=== PATIENT | female | born 1985 | race Caucasian/White ===

== ENCOUNTER → 2020-08-07 | Outpatient (CLI) | payer BC, OTHER ==
[2020-08-07 16:02] LABS: Basophils # (A) 0.05 X 10*3/uL (0.00-0.10); Basophils % (A) 0.5 %; Eosinophils # (A) 0.28 X 10*3/uL (0.04-0.35); Eosinophils % (A) 2.7 %; HGB 13.1 g/dL (12.0-15.0); Lymphocytes # (A) 2.79 X 10*3/uL (0.90-5.00); Lymphocytes % (A) 26.4 %; MCH 30.5 pg (27.0-32.0); MCV 95.3 fL (80.0-97.0); Mean Platelet Volume 10.2 fL (9.5-12.2); Monocytes # (A) 0.67 X 10*3/uL (0.20-1.00); Monocytes % (A) 6.3 %; Neutrophils # (A) 6.73 X 10*3/uL (1.80-7.70); Neutrophils % (A) 63.7 %; Platelet Count 284 X 10*3/uL (140-440); RDW 12.8 % (11.5-14.5); WBC 10.56 X 10*3/uL (4.50-10.00)
[2020-08-07 19:19] LABS: Hemoglobin A1C 6.6 % (4.0-6.0)
[2020-08-07 19:55] LABS: African American GFR (CKD) 131.9 (60.0-200.0); Albumin 4.5 g/dL (3.80-4.90); Albumin/Globulin Ratio 2.05 (1.60-3.17); Anion Gap 6.4 mmol/L (4.00-12.00); BUN/Creat Ratio 17.14 Ratio (12.00-20.00); Calcium 8.7 mg/dL (8.7-10.3); Carbon Dioxide 27.6 mmol/L (21.6-31.8); Chol/HDL Ratio 5.16; Globulin 2.2 g/dL (1.6-3.3); LDL Cholesterol,Calculated 99.8 mg/dL (0.0-131.0); Non-African American GFR(CKD) 113.8 (60.0-200.0); Potassium 4.5 mmol/L (3.5-5.5); Total Bilirubin 0.5 mg/dL (0.3-1.2); Total Protein 6.7 g/dL (6.2-8.2); VLDL Calculation 54.2 mg/dL (5.00-40.00)
== END | disposition home or self-care (01) ==
LOC: LABWHC1 08:36
PROVIDERS: ATTEND Nurse Practitioner Family
DX: Z13.220 Encounter for screening for lipoid disorders (principal); E11.9 Type 2 diabetes mellitus without complications
CPT/HCPCS: 36415; 80053; 80061; 83036; 85025

== ENCOUNTER → 2022-11-03 | Outpatient (CLI) | payer BC, OTHER ==
[2022-11-04 11:31] LABS: Zinc, Serum 77 ug/dL (60-130)
[2022-11-05 04:21] LABS: Vitamin A 62 ug/dL (38-106)
== END | disposition home or self-care (01) ==
LOC: LABWHC1 08:33
PROVIDERS: ATTEND Surgery Plastic and Reconstructive Surgery
DX: E66.01 Morbid (severe) obesity due to excess calories (principal); E89.1 Postprocedural hypoinsulinemia; D50.8 Other iron deficiency anemias; K91.2 Postsurgical malabsorption, not elsewhere classified; E44.0 Moderate protein-calorie malnutrition; E44.1 Mild protein-calorie malnutrition; E55.9 Vitamin D deficiency, unspecified; K74.1 Hepatic sclerosis; N19 Unspecified kidney failure; T56.894A Toxic effect of other metals, undetermined, initial encounter; K50.90 Crohn's disease, unspecified, without complications
CPT/HCPCS: 36415; 82525; 84255; 84425; 84590; 84630

== ENCOUNTER → 2022-11-05 | Outpatient (CLI) | payer BC, OTHER ==
[2022-11-05 17:17] LABS: HCT 40.7 % (37.2-46.3); HGB 13.2 d/dL (12.0-15.0); MCH 30.6 pg (27.0-32.0); MCHC 32.4 d/dL (32.0-37.0); MCV 94.4 FL (80.0-97.0); Mean Platelet Volume 10.8 FL (9.5-12.2); NRBC Per 100 WBC 0 X 10*3/uL (0.00-0.01); Platelet Count 285 X 10*3/uL (140-440); RBC 4.31 X 10*6/uL (4.10-5.20); RDW 12.7 % (11.5-14.5); WBC 10.71 X 10*3/uL (4.50-10.00)
== END | disposition home or self-care (01) ==
LOC: LABPAT 08:57
PROVIDERS: ATTEND Surgery Plastic and Reconstructive Surgery
DX: E89.1 Postprocedural hypoinsulinemia (principal); D50.8 Other iron deficiency anemias; K91.2 Postsurgical malabsorption, not elsewhere classified; E44.1 Mild protein-calorie malnutrition; E44.0 Moderate protein-calorie malnutrition; E45 Retarded development following protein-calorie malnutrition; E55.9 Vitamin D deficiency, unspecified; K74.1 Hepatic sclerosis; N19 Unspecified kidney failure; T59.894A Toxic effect of other specified gases, fumes and vapors, undetermined, initial encounter; K50.90 Crohn's disease, unspecified, without complications
CPT/HCPCS: 85027

== ENCOUNTER 2023-01-05 06:05 | Day surgery (SDC) | payer BC, OTHER ==
[~2023-01-05 06:05] MED LIST: LACTATED RINGERS 1,000 ML IV SCH; LIDOCAINE 1% (10MG/ML) FOR IV START INTRADERMA PRN
[2023-01-05] MEDS ORDERED: LIDOCAINE 1% INJ 10MG/ML (20 ML MDV) ONE (07:00)
[2023-01-05] MEDS ORDERED: PROPOFOL 10 MG/ML 20 ML VIAL IV ONE (07:00)
[2023-01-05 07:03] VITALS: TEMP 97.6
[2023-01-05 07:07] LABS: Glucose,Whole Blood 112 mg/dL (70-110)
--- NOTE | 2023-01-05 07:29 | P.GSHP ---
History of Present Illness H&P Date: 01/05/23 CHIEF COMPLAINT: GERD HISTORY OF PRESENT ILLNESS: The patient is a 37-year-old female who presents reports gastroesophageal reflux disease. Upper endoscopy was offered for further evaluation and management. PAST MEDICAL HISTORY: Please see list. PAST SURGICAL HISTORY: Please see list. MEDICATIONS: Please see list. ALLERGIES: Please see list. SOCIAL HISTORY: No illicit drug use FAMILY HISTORY: No reports of Crohn disease or ulcerative colitis. REVIEW OF ORGAN SYSTEMS: CONSTITUTIONAL: No reports of fevers or chills. GI: Denies any blood in stools or constipation. PHYSICAL EXAM: VITAL SIGNS: Stable GENERAL: Well-developed and pleasant in no acute distress. HEENT: No scleral icterus. Extraocular movements grossly intact. Moist buccal mucosa. NECK: Supple without lymphadenopathy. CHEST: Unlabored respirations. Equal bilateral excursions. CARDIOVASCULAR: Regular rate and rhythm. Distal 2+ pulses. ABDOMEN: Soft, nondistended. MUSCULOSKELETAL: No clubbing, cyanosis, or edema. ASSESSMENT: 1. Gastroesophageal reflux disease PLAN: 1. Recommend proceeding with an upper endoscopy Past Medical History Past Medical History: Diabetes Mellitus, GERD/Reflux Additional Past Medical History / Comment(s): kidney stones History of Any Multi-Drug Resistant Organisms: None Reported Past Surgical History: Adenoidectomy, Cholecystectomy, Hysterectomy, Tonsillectomy, Tubal Ligation Additional Past Surgical History / Comment(s): lithotripsy rt carpal tunnel, varicose vein rt leg, Past Anesthesia/Blood Transfusion Reactions: Postoperative Nausea & Vomiting (PONV) Smoking Status: Former smoker Medications and Allergies Home Medications Medication Instructions Recorded Confirmed Type Omeprazole 20 mg PO BID 10/29/22 01/05/23 History Venlafaxine HCl [Effexor XR] 225 mg PO DAILY 10/29/22 01/05/23 History metFORMIN HCL [metFORMIN HCL ER 500 mg PO DAILY 10/29/22 01/05/23 History Osmotic] Ergocalciferol [Vitamin D2 (1250 50,000 unit PO WEEKLY 11/06/22 01/05/23 History Mcg = 43712 Iu)] Allergies Allergy/AdvReac Type Severity Reaction Status Date / Time cephalexin [From Keflex] AdvReac Unknown Verified 01/05/23 06:53 ethinyl estradiol AdvReac Nausea & Verified 01/05/23 06:53 [From Sprintec (28)] Vomiting & Diarrhea norgestimate AdvReac Nausea & Verified 01/05/23 06:53 [From Sprintec (28)] Vomiting & Diarrhea Surgical - Exam Vital Signs Temp Resp BP Pulse Ox 97.6 F 17 131/82 97 01/05/23 06:45 01/05/23 06:45 01/05/23 06:45 01/05/23 06:45 Results - Labs Abnormal Lab Results - Last 24 Hours (Table) 01/05/23 Range/Units 06:52 POC Glucose (mg/dL) 112 H (70-110) mg/dL
--- NOTE | 2023-01-05 07:33 | P.PCN ---
Date of Procedure: 01/05/23 Description of Procedure: PREOPERATIVE DIAGNOSIS: Gastroesophageal reflux disease. Morbid obesity. POSTOPERATIVE DIAGNOSIS: Gastroesophageal reflux disease. Morbid obesity. Gastritis. OPERATION: Esophagogastroduodenoscopy with biopsies along esophagus, antrum and duodenum SURGEON: Alejandra Morrow MD ANESTHESIA: MAC. INDICATIONS: The patient is a 37-year-old female who presents with reflux disease. Benefits and risks of the procedure were described. Informed consent was obtained. DESCRIPTION: The patient was brought into the endoscopy suite and laid in the left lateral decubitus position. An Olympus gastroscope was passed along the posterior oropharynx down to the distal esophagus where the squamocolumnar junction was encountered at 42 cm from the incisors. The stomach was entered and no bile reflux was found. Additional findings are listed below. Biopsies with cold forceps were obtained of the antrum. The first through third portion of the duodenum was examined. Retroflexion of the scope confirmed Hill grade 1 lower esophageal valve. The squamocolumnar junction demonstrated LA grade A erosive esophagitis. The stomach was desufflated. The patient tolerated the procedure well. FINDINGS: Squamocolumnar junction 42 cm from the incisors. Diaphragmatic hiatus at 42 cm. Hill grade 1 lower esophageal valve. LA grade A erosive esophagitis. Biopsies obtained of the duodenum, esophagus, and antrum. Chronic gastritis with biopsies obtained. RECOMMENDATIONS: Upper endoscopy as needed. Plan - Discharge Summary Discharge Rx Participant: No New Discharge Prescriptions: Continue metFORMIN HCL [metFORMIN HCL ER Osmotic] 500 mg PO DAILY Venlafaxine HCl [Effexor XR] 225 mg PO DAILY Omeprazole 20 mg PO BID Ergocalciferol [Vitamin D2 (1250 Mcg = 91415 Iu)] 50,000 unit PO WEEKLY Discharge Medication List Omeprazole 20 mg PO BID 10/29/22 [History] Venlafaxine HCl [Effexor XR] 225 mg PO DAILY 10/29/22 [History] metFORMIN HCL [metFORMIN HCL ER Osmotic] 500 mg PO DAILY 10/29/22 [History] Ergocalciferol [Vitamin D2 (1250 Mcg = 07061 Iu)] 50,000 unit PO WEEKLY 11/06/22 [History] Follow up Appointment(s)/Ref[facility] [place] [facility] - 01/14/23 Patient Instructions/Handouts: Gastritis (DC), GERD (Gastroesophageal Reflux Disease) (DC) Discharge Disposition: HOME SELF-CARE
[2023-01-05 07:47] VITALS: RESP 16
[2023-01-05 08:02] VITALS: BP 131/82; PULSE 77
== END 2023-01-05 08:15 | disposition home or self-care (01) ==
LOC: ORWHC2ENDO 06:05
PROVIDERS: ATTEND Surgery Plastic and Reconstructive Surgery
DX: K29.50 Unspecified chronic gastritis without bleeding (principal); K21.00 Gastro-esophageal reflux disease with esophagitis, without bleeding; E66.01 Morbid (severe) obesity due to excess calories; K44.9 Diaphragmatic hernia without obstruction or gangrene; Z79.84 Long term (current) use of oral hypoglycemic drugs; Z79.899 Other long term (current) drug therapy; Z87.442 Personal history of urinary calculi; Z90.49 Acquired absence of other specified parts of digestive tract; Z90.710 Acquired absence of both cervix and uterus; Z98.51 Tubal ligation status; Z90.89 Acquired absence of other organs; Z87.891 Personal history of nicotine dependence; Z88.1 Allergy status to other antibiotic agents; Z68.41 Body mass index [BMI] 40.0-44.9, adult
CPT/HCPCS: 88305; 43239; J2001; J2704

== ENCOUNTER → 2023-01-14 | Outpatient (CLI) | payer BC, OTHER ==
[2023-01-14 14:06] VITALS: BP 155/93; PULSE 91; TEMP 98.4; BMI 41.4
--- NOTE | 2023-01-14 14:57 | P.BASOAP ---
Subjective Progress Note Date: 01/14/23 Knows she has fatty liver disease. EGD reviewed. Needs vit D. FDD plan for sleeve gastrectomy. Risk for increase GERD. 3 week protein diet. Needs new nicotine urine. Objective - Vital Signs Vital signs: Vital Signs Temp 98.4 F 01/14/23 13:57 Pulse 91 01/14/23 13:57 Resp BP 155/93 01/14/23 13:57 Pulse Ox FiO2 Intake & Output 01/13/23 01/14/23 01/14/23 18:59 06:59 18:59 Weight 140.614 kg Assessment/Plan Plan: Date: 01/14/23 Initial Weight: Initial BMI: Current Weight: 140.614 kg Current BMI: 41.4 Type of Surgery: Total Volume in Band: Previous Volume: Volume Removed: Volume Added: Band Size:
[2023-01-17 12:31] LABS: Anabasine Urine <2.0 ng/mL (<2.0)
== END ==
LOC: BARWHC3 13:36
PROVIDERS: ATTEND Surgery Plastic and Reconstructive Surgery
DX: Z53.9 Procedure and treatment not carried out, unspecified reason (principal)
CPT/HCPCS: 80323; 99211

== ENCOUNTER → 2023-04-01 | Outpatient (CLI) | payer BC, OTHER ==
[2023-04-01 15:43] VITALS: BP 155/99; PULSE 92; TEMP 97.9; BMI 39.6
--- NOTE | 2023-04-06 08:24 | P.BASOAP ---
Subjective Progress Note Date: 04/01/23 DATE OF SERVICE: 04/01/23 CHIEF COMPLAINT: Morbid obesity HISTORY OF PRESENT ILLNESS: Guerda Nolen is a 37-year-old female who comes with lifelong morbid obesity. She comes in looking into the sleeve gastrectomy. As a result of her morbid obesity, she has developed diabetes type 2, osteoarthritis bilateral hips, osteoarthritis bilateral knees. She has completed medical supervised weight loss. She has completed medical risk assessment. She is undergoing medical supervised weight loss. She is on diet. She is down 14 to 15 pounds after 1 week. At work she is lifting 180 pounds. At height of 6 feet 0.5 inches, her ideal body weight is 183 pounds. Highest weight is 309 pounds, body mass index 41.5. She comes in 296 pounds. Her body mass index is 39.6. She is 113 pounds overweight. PAST MEDICAL HISTORY: 1. Morbid obesity due to excess calories 2. Body mass index 41.5 3. Depressive disorder 4. Diabetes type 2, [id number] 5. Esophageal reflux disease 6. Kidney stone 7. Generalized anxiety disorder 8. Postop nausea or vomiting 9. Osteoarthritis bilateral knees. 10. Osteoarthritis bilateral hips PAST SURGICAL HISTORY: 1. Adenoidectomy 2. Cholecystectomy 3. Hysterectomy 4. Tonsillectomy 5. Tubal Ligation 6. Lithotripsy HOME MEDICATIONS: Home Medications Medication Instructions Recorded Confirmed Venlafaxine HCl [Effexor XR] 225 mg PO DAILY 10/29/22 04/15/23 metFORMIN HCL [metFORMIN HCL ER 500 mg PO DAILY 10/29/22 04/15/23 Osmotic] Ergocalciferol [Vitamin D2 (1250 50,000 unit PO WEEKLY 11/06/22 04/15/23 Mcg = 25503 Iu)] Previous Rx's Medication Instructions Recorded Acetaminophen Tab [Tylenol] 1,000 mg PO Q6HR PRN #30 tablet 04/07/23 Omeprazole [PriLOSEC] 40 mg PO DAILY #30 cap 04/07/23 Ondansetron Odt [Zofran Odt] 4 mg PO Q8HR PRN #9 tab 04/07/23 Simethicone 40 mg/0.6 ml Drops 40 mg PO PCHS PRN #30 ml 04/07/23 [Mylicon Drops] bisacodyL [Dulcolax] 5 mg PO DAILY PRN #10 tab 04/07/23 ALLERGIES: Allergies Allergy/AdvReac Type Severity Reaction Status Date / Time cephalexin [From Keflex] AdvReac Unknown Verified 04/10/23 10:16 ethinyl estradiol AdvReac Nausea & Verified 04/10/23 10:16 [From Sprintec (28)] Vomiting & Diarrhea norgestimate AdvReac Nausea & Verified 04/10/23 10:16 [From Sprintec (28)] Vomiting & Diarrhea SOCIAL HISTORY: Past tobacco use. FAMILY HISTORY: No family history of ulcerative colitis disease or Crohn's disease. Family history of morbid obesity. No lupus in the family. No reports of stomach or esophageal cancer. REVIEW OF ORGAN SYSTEMS: CONSTITUTIONAL: HEENT: Denies any active troubles with vision or hearing. Has troubles with swallowing. ENDOCRINE: Has diabetes. No hypothyroidism. CARDIOVASCULAR: Past reports of palpitations or heart attacks or chest pain. Has hypertensive heart disease. RESPIRATORY: Has daytime somnolence. Has asthma. Has chronic obstructive pulmonary disease. GASTROINTESTINAL: Denies any bright red blood per rectum. No diarrhea. No constipation. Has gastroesophageal reflux disease. GENITOURINARY: Has bladder urgency. No recent blood in urine MUSCULOSKELETAL: Has lower back pain and joint pain. Has osteoarthritis of the knees. History of bilateral lower extremity edema. NEURO: No headaches. No seizure disorders. Has neuropathy. PSYCH: Has depression. No suicidal ideation. RHEUMATOLOGIC: No lupus. No rheumatoid arthritis. HEMATOLOGIC: Denies any abnormal bleeding or bruising. Past history of DVTs. On blood thinners. SKIN: No rash. No skin cancer. PHYSICAL EXAM: VITAL SIGNS: Height 6 foot 0.5 inches, weight 296 pounds. BMI 39.6 Vital Signs Temp 97.9 F 04/01/23 15:34 Pulse 92 04/01/23 15:34 Resp BP 155/99 04/01/23 15:34 Pulse Ox FiO2 GENERAL: Well-developed in no acute distress. HEENT: No scleral icterus. Extraocular movements grossly intact. Hears conversational speech. No nasal drainage. NECK: Supple without lymphadenopathy. CHEST: Nonlabored respirations with equal bilateral excursions. CARDIOVASCULAR: Regular rate and regular rhythm. Distal 2+ pulses. ABDOMEN: Obese, soft, nontender, nondistended. MUSCULOSKELETAL: No clubbing, cyanosis. NEURO: No focal or lateralizing signs. Cranial nerves 2 through 12 grossly within normal limits. PSYCH: Appropriate affect. Alert and oriented to person, place and time. SKIN: Good skin turgor. Well perfused. LABS: Reviewed. WBC elevated, leukocytosis Urine: Urine cotinine and nicotine elevated. EKG: Anterior lateral and possible inferior infarct. EGD FINDINGS: Squamocolumnar junction 42 cm from the incisors. Diaphragmatic hiatus at 42 cm. Hill grade 1 lower esophageal valve. LA grade A erosive esophagitis. Biopsies obtained of the duodenum, esophagus, and antrum. Chronic gastritis with biopsies obtained. Final Pathologic Diagnosis A. DUODENUM, BIOPSY: Benign small bowel mucosa with intact villous architecture, negative for histopathologic abnormality. B. GASTRIC ANTRUM, BIOPSY: Mild chronic gastritis. Helicobacter pylori organisms are not identified on routine H+E sections. C. ESOPHAGUS, BIOPSY: Chronic esophagitis with rare intramucosal eosinophils consistent with reflux esophagitis. ASSESSMENT: 1. Morbid obesity due to excess calories 2. Body mass index 41.5 now 39.6 3. Depressive disorder 4. Diabetes type 2, [id number] 5. Esophageal reflux disease 6. Kidney stone 7. Generalized anxiety disorder 8. Postop nausea or vomiting 9. Osteoarthritis bilateral knees. 10. Osteoarthritis bilateral hips 11. Reflux esophagitis 12. Leukocytosis 13. Tobacco abuse disorder in remission PLAN: 1. Bariatric options between a sleeve, band and a Alejnadro-en-Y gastric bypass were reviewed in detail. The patient elected for a sleeve gastrectomy. Robotic assisted approach described. 2. The [place] [facility] Data was obtained. 3. An 8 page second-generation bariatric consent form was reviewed in detail including potential of bleeding, infection, leaks, adequate weight loss, nutritional deficiencies which the patient demonstrated understanding of the risks. 4. A 2 week high-protein low caloric 800 kcal diet described to address hepatomegaly. 5. Preoperative labs including complete metabolic panel and CBC with type and screen recommended. 6. DVT prophylaxis per [place] [facility]. 7. Antibiotic prophylaxis. 8. Inpatient hospitalization anticipated for more than 2 nights. 9. All questions and concerns were addressed with the patient. 10. The patient is at elevated risk for perioperative complications with recurrent tobacco abuse 11. Overall, patient has expressed understanding of bariatric care including postoperative diet and commitment of lifestyle. Patient should benefit from surgical intervention for correction of morbid obesity. 12. Strict 2 week diet advised including hydration over 64 ounces daily and increased activity 13. As she lives over 180 pounds at work, 6 weeks of recovery described. Return to work over 4 weeks. Anticipated return to work May 11 to May 25 Objective - Vital Signs Vital signs: Vital Signs Temp 97.9 F 04/01/23 15:34 Pulse 92 04/01/23 15:34 Resp BP 155/99 04/01/23 15:34 Pulse Ox FiO2 Assessment/Plan Plan: Date: 04/01/23 Initial Weight: Initial BMI: Current Weight: 134.263 kg Current BMI: 39.6 Type of Surgery: Total Volume in Band: Previous Volume: Volume Removed: Volume Added: Band Size:
== END ==
LOC: BARWHC3 15:01
PROVIDERS: ATTEND Surgery Plastic and Reconstructive Surgery
DX: E66.01 Morbid (severe) obesity due to excess calories (principal); F32.A Depression, unspecified; E11.9 Type 2 diabetes mellitus without complications; N20.0 Calculus of kidney; M17.0 Bilateral primary osteoarthritis of knee; M16.0 Bilateral primary osteoarthritis of hip; K21.00 Gastro-esophageal reflux disease with esophagitis, without bleeding; D72.829 Elevated white blood cell count, unspecified; F17.201 Nicotine dependence, unspecified, in remission; F41.1 Generalized anxiety disorder; K91.0 Vomiting following gastrointestinal surgery; Z68.39 Body mass index [BMI] 39.0-39.9, adult; Z88.1 Allergy status to other antibiotic agents; Z88.8 Allergy status to other drugs, medicaments and biological substances; Z79.84 Long term (current) use of oral hypoglycemic drugs
CPT/HCPCS: 99211

== ENCOUNTER → 2023-04-01 | Outpatient (CLI) | payer BC, OTHER ==
[2023-04-01 19:03] LABS: ALT 59 U/L (8-44); AST 39 U/L (13-35); Albumin 4.7 g/dL (3.8-4.9); Albumin/Globulin Ratio 1.81 Ratio (1.60-3.17); Alkaline Phosphatase 84 U/L (41-126); BUN/Creat Ratio 23.43 Ratio (12.00-20.00); Basophils # (A) 0.05 X 10*3/uL (0.00-0.10); Basophils % (A) 0.6 %; Blood Urea Nitrogen 16.4 mg/dL (9.0-27.0); Calcium 9.7 mg/dL (8.7-10.3); Chloride 105 mmol/L (96-109); Eosinophils # (A) 0.09 X 10*3/uL (0.04-0.35); Globulin 2.6 g/dL (1.6-3.3); Glucose 97 mg/dL (70-110); HCT 42.8 % (37.2-46.3); HGB 14.4 g/dL (12.0-15.0); Lymphocytes # (A) 2.73 X 10*3/uL (0.90-5.00); Lymphocytes % (A) 31.2 %; MCH 30.9 pg (27.0-32.0); MCHC 33.6 g/dL (32.0-37.0); MCV 91.8 FL (80.0-97.0); Mean Platelet Volume 10.1 FL (9.5-12.2); Monocytes # (A) 0.71 X 10*3/uL (0.20-1.00); Monocytes % (A) 8.1 %; NRBC Per 100 WBC 0 X 10*3/uL (0.00-0.01); Neutrophils # (A) 5.13 X 10*3/uL (1.80-7.70); Neutrophils % (A) 58.8 %; Platelet Count 299 X 10*3/uL (140-440); Potassium 4.3 mmol/L (3.5-5.5); RBC 4.66 X 10*6/uL (4.10-5.20); RDW 12.5 % (11.5-14.5); Sodium 139 mmol/L (135-145); Total Bilirubin 0.3 mg/dL (0.3-1.2); Total Protein 7.3 g/dL (6.2-8.2); WBC 8.74 X 10*3/uL (4.50-10.00)
== END | disposition home or self-care (01) ==
LOC: LABPAT 15:53
PROVIDERS: ATTEND Surgery Plastic and Reconstructive Surgery
DX: Z01.812 Encounter for preprocedural laboratory examination (principal)
CPT/HCPCS: 80053; 85025; 86850; 86900; 86901

== ENCOUNTER 2023-04-06 11:34 | Observation (INO) | payer BC, OTHER ==
--- NOTE | 2023-04-01 15:45 | P.BASOAP ---
Subjective Progress Note Date: 04/01/23 She is on diet. She is down 14 to 15 pounds after 1 week. 04/06 surgery. Lifting at work 180 pounds. 6 weeks described. 4weeks minimum. May 11 return to work. May 25 weeks. Objective - Vital Signs Vital signs: Intake & Output 03/31/23 04/01/23 04/01/23 18:59 06:59 18:59 Weight 136.078 kg Assessment/Plan Plan: Date: Initial Weight: Initial BMI: Current Weight: 136.078 kg Current BMI: Type of Surgery: Total Volume in Band: Previous Volume: Volume Removed: Volume Added: Band Size:
--- NOTE | 2023-04-06 08:29 | P.GSHP ---
History of Present Illness H&P Date: 04/06/23 CHIEF COMPLAINT: Morbid obesity HISTORY OF PRESENT ILLNESS: Guerda Nolen is a 37-year-old female who comes with lifelong morbid obesity. As result of morbid obesity, she has developed diabetes type 2, hypertensive heart disease, obstructive sleep apnea,osteoarthritis of the hips and knees. She has completed medical supervised weight loss. She completed medical including cardiac assessment. She has completed psychological risk assessment. All surgical options were reviewed. She elected for sleeve gastrectomy. At height of 6 feet 1 inches, her ideal body weight is 188 pounds. She comes in 300 pounds. Her body mass index is 39.6. She is 112 pounds overweight. PAST MEDICAL HISTORY: 1. Morbid obesity due to excess calories 2. Body mass index of 39.6 3. Osteoarthritis of the knees. 4. Osteoarthritis of the lower back. 5. Hypertensive heart disease. 6. Gastroesophageal reflux disease 7. Generalized anxiety disorder 8. Obstructive sleep apnea 9. Diabetes type 2, insulin dependent 10. Depressive disorder 11. Postop nausea or vomiting PAST SURGICAL HISTORY: 1. Cholecystectomy 2. Hysterectomy 3. Tonsillectomy and adenoidectomy 4. Lithotripsy 5. Tubal ligation HOME MEDICATIONS: Reviewed ALLERGIES: Reviewed SOCIAL HISTORY: Past tobacco use. FAMILY HISTORY: No family history of ulcerative colitis disease or Crohn's disease. Family history of morbid obesity. No lupus in the family. No reports of stomach or esophageal cancer. REVIEW OF ORGAN SYSTEMS: CONSTITUTIONAL: At height of 6 feet 1 inches, her ideal body weight is 188 pounds. She comes in 300 pounds. Her body mass index is 39.6. She is 112 pounds overweight. HEENT: Denies any active troubles with vision or hearing. ENDOCRINE: Has diabetes. No hypothyroidism. CARDIOVASCULAR: Past reports of palpitations or heart attacks or chest pain. RESPIRATORY: Has daytime somnolence. GASTROINTESTINAL: Denies any bright red blood per rectum. Has gastroesophageal reflux disease. MUSCULOSKELETAL: Has lower back pain and joint pain. Has osteoarthritis of the knees. NEURO: No headaches. No seizure disorders. PSYCH: Has depression. No suicidal ideation. RHEUMATOLOGIC: No lupus. No rheumatoid arthritis. HEMATOLOGIC: Denies any abnormal bleeding or bruising. No personal history of DVTs. SKIN: Has rash. No skin cancer. PHYSICAL EXAM: VITAL SIGNS: Height 6 foot 1 inches, weight 300 pounds. BMI 39.6 GENERAL: Well-developed in no acute distress. HEENT: No scleral icterus. Extraocular movements grossly intact. Hears conversational speech. No nasal drainage. NECK: Supple without lymphadenopathy. CHEST: Nonlabored respirations with equal bilateral excursions. CARDIOVASCULAR: Regular rate and regular rhythm. Distal 2+ pulses. ABDOMEN: Obese, soft, nontender, nondistended. MUSCULOSKELETAL: No clubbing, cyanosis. NEURO: No focal or lateralizing signs. Cranial nerves 2 through 12 grossly within normal limits. PSYCH: Appropriate affect. Alert and oriented to person, place and time. SKIN: Good skin turgor. Well perfused. ASSESSMENT: 1. Morbid obesity due to excess calories 2. Body mass index of 39.6 3. Osteoarthritis of the knees. 4. Osteoarthritis of the lower back. 5. Hypertensive heart disease. 6. Gastroesophageal reflux disease 7. Generalized anxiety disorder 8. Obstructive sleep apnea 9. Diabetes type 2, insulin dependent 10. Depressive disorder 11. Postop nausea or vomiting PLAN: 1. Bariatric options between a sleeve, band and a Alejandro-en-Y gastric bypass were reviewed in detail. The patient elected for a sleeve gastrectomy. Robotic assisted approach described. 2. The [place] [facility] Data was also reviewed with benefits and risks as described. 3. An 8 page second-generation bariatric consent form was reviewed in detail including potential of bleeding, infection, leaks, adequate weight loss, nutri tional deficiencies which the patient demonstrated understanding of the risks. 4. A 2 week high-protein low caloric 800 kcal diet described to address hepatomegaly. 5. Preoperative labs including complete metabolic panel and CBC with type and screen recommended. 6. DVT prophylaxis per [place] [facility]. 7. Antibiotic prophylaxis. 8. Inpatient hospitalization anticipated for more than 2 nights. 9. All questions and concerns were addressed with the patient. 10. She is at elevated risk for perioperative complications secondary to pre- existing diabetes type 2, obstructive sleep apnea. 11. Overall, patient has expressed understanding of bariatric care including postoperative diet and commitment of lifestyle. Patient should benefit from surgical intervention for correction of her morbid obesity. Past Medical History Past Medical History: Diabetes Mellitus Additional Past Medical History / Comment(s): kidney stones History of Any Multi-Drug Resistant Organisms: None Reported Past Surgical History: Adenoidectomy, Cholecystectomy, Hysterectomy, To nsillectomy, Tubal Ligation Additional Past Surgical History / Comment(s): lithotripsy Past Anesthesia/Blood Transfusion Reactions: Postoperative Nausea & Vomiting (PONV) Past Psychological History: Anxiety, Depression Smoking Status: Former smoker Past Alcohol Use History: None Reported Additional Past Alcohol Use History / Comment(s): Quit smoking 2022 Past Drug Use History: Marijuana - Past Family History Father Family Medical History: Cancer Additional Family Medical History / Comment(s): lung Medications and Allergies Home Medications Medication Instructions Recorded Confirmed Type Omeprazole 20 mg PO BID 10/29/22 04/01/23 History Venlafaxine HCl [Effexor XR] 225 mg PO DAILY 10/29/22 04/01/23 History metFORMIN HCL [metFORMIN HCL ER 500 mg PO DAILY 10/29/22 04/01/23 History Osmotic] Ergocalciferol [Vitamin D2 (1250 50,000 unit PO WEEKLY 11/06/22 04/01/23 History Mcg = 32879 Iu)] Allergies Allergy/AdvReac Type Severity Reaction Status Date / Time cephalexin [From Keflex] AdvReac Unknown Verified 03/31/23 12:12 ethinyl estradiol AdvReac Nausea & Verified 03/31/23 12:12 [From Sprintec (28)] Vomiting & Diarrhea norgestimate AdvReac Nausea & Verified 03/31/23 12:12 [From Sprintec (28)] Vomiting & Diarrhea
[~2023-04-06 11:34] MED LIST changes: +ACETAMINOPHEN TAB 500 MG TAB PO PRN; +ALVIMOPAN 12 MG CAPSULE PO PRN; +DEXAMETHASONE SOD PHOSPHATE 4 MG/ML 1 ML VIAL IV ONE; +ENOXAPARIN 40 MG/0.4 ML SYRINGE SQ PRN; -LACTATED RINGERS 1,000 ML IV SCH; +ONDANSETRON 4 MG/2 ML VIAL IVP PRN; +SCOPOLAMINE 1 MG/72 HR PATCH TRANSDERM ONE; +ceFAZolin 3 GM in SODIUM CHLORIDE 0.9% 100 ML IVPB PRN; +droPERidol 5 MG/2 ML VIAL IVP ONE; +droPERidol 5 MG/2 ML VIAL IVP PRN
[2023-04-06 12:06] LABS: Glucose,Whole Blood 101 mg/dL (70-110)
[2023-04-06] MEDS: LACTATED RINGERS 1,000 ML IV SCH (12:07)
[2023-04-06] MEDS ORDERED: SCOPOLAMINE 1 MG/72 HR PATCH TRANSDERM ONE (12:14)
[2023-04-06] MEDS ORDERED: ONDANSETRON 4 MG/2 ML VIAL IVP ONE (12:15)
[2023-04-06] MEDS ORDERED: DEXAMETHASONE SOD PHOSPHATE 4 MG/ML 1 ML VIAL IVP ONE (12:16)
[2023-04-06 12:30] LABS: Basophils # (A) 0.1 k/uL (0-0.2); Basophils % (A) 1 %; Eosinophils # (A) 0.1 k/uL (0-0.7); Eosinophils % (A) 1 %; HGB 14.5 gm/dL (11.4-16.0); Lymphocytes # (A) 2.6 k/uL (1.0-4.8); Lymphocytes % (A) 29 %; MCH 31.5 pg (25.0-35.0); MCHC 34.6 g/dL (31.0-37.0); MCV 91.2 fL (80.0-100.0); Mean Platelet Volume 7.7; Monocytes # (A) 0.5 k/uL (0-1.0); Monocytes % (A) 5 %; Neutrophils # (A) 5.5 k/uL (1.3-7.7); Neutrophils % (A) 61 %; Platelet Count 276 k/uL (150-450); RDW 12.3 % (11.5-15.5)
[2023-04-06] MEDS ORDERED: GLYCOPYRROLATE 0.2 MG/ML 2 ML VIAL ONE (12:37)
[2023-04-06] MEDS ORDERED: SUCCINYLCHOLINE CHLORIDE 200 MG/10 ML VIAL IV ONE (12:37)
[2023-04-06] MEDS ORDERED: KETOROLAC 15 MG/ML 1 ML VIAL ONE (12:37)
[2023-04-06] MEDS ORDERED: LIDOCAINE 1% INJ 10MG/ML (20 ML MDV) ONE (12:37)
[2023-04-06] MEDS ORDERED: ROCURONIUM 10 MG/ML (5 ML VIAL) IV ONE (12:37)
[2023-04-06] MEDS ORDERED: fentaNYL (PF) 50 MCG/ML 2 ML AMP ONE (12:37)
[2023-04-06] MEDS ORDERED: PROPOFOL 10 MG/ML 20 ML VIAL IV ONE (12:37)
[2023-04-06] MEDS ORDERED: NEOSTIGMINE 1 MG/ML 10 ML VIAL ONE (12:37)
[2023-04-06] MEDS ORDERED: HYDROmorphone (PF) 1 MG/ML ONE (12:37)
[2023-04-06] MEDS ORDERED: MIDAZOLAM 2 MG/2 ML VIAL ONE (12:37)
[2023-04-06] MEDS ORDERED: LABETALOL 5 MG/ML VIAL MDV ONE (12:37)
[2023-04-06 12:41] LABS: ALT 68 U/L (4-34); AST 51 U/L (14-36); African American GFR (CKD) >90 (>60 ml/min/1.73 sqM); Albumin 4.8 g/dL (3.5-5.0); Alkaline Phosphatase 88 U/L (38-126); Blood Urea Nitrogen 16 mg/dL (7-17); Calcium 9.4 mg/dL (8.4-10.2); Carbon Dioxide 20 mmol/L (22-30); Glucose 100 mg/dL (74-99); Non-African American GFR(CKD) >90 (>60 ml/min/1.73 sqM); Total Bilirubin 0.7 mg/dL (0.2-1.3); Total Protein 7.8 g/dL (6.3-8.2)
[2023-04-06 12:52] LABS: Anion Gap 12 mmol/L; Chloride 106 mmol/L (98-107); Potassium 4.4 mmol/L (3.5-5.1); Sodium 138 mmol/L (137-145)
[2023-04-06] MEDS ORDERED: LIDOCAINE 1%-EPI 1:100,000 50 ML VIAL SQ ONE (13:16)
[2023-04-06] MEDS ORDERED: SODIUM CHLORIDE 0.9% 1,000 ML IV ONE (14:25)
[2023-04-06] MEDS ORDERED: SODIUM CHLORIDE 0.9% 2,000 ML IV ONE (14:48)
[2023-04-06] MEDS ORDERED: HYDROmorphone 1 MG/ML 1 ML SYRINGE IVP PRN (14:48)
[2023-04-06] MEDS ORDERED: diphenhydrAMINE 50 MG/ML 1 ML VIAL IVP PRN (14:48)
[2023-04-06] MEDS ORDERED: NALOXONE 0.4 MG/ML 1 ML VIAL IV PRN ×2 (14:48→14:51)
--- NOTE | 2023-04-06 14:55 | P.OP ---
Date of Procedure: 04/06/23 Description of Procedure: SURGEON: MADAY CONTRERAS MD PREOPERATIVE DIAGNOSES: 1. Morbid obesity due to excess calories 2. Body mass index of 39.6 3. Osteoarthritis of the knees. 4. Osteoarthritis of the lower back. 5. Hypertensive heart disease. 6. Gastroesophageal reflux disease 7. Generalized anxiety disorder 8. Obstructive sleep apnea 9. Diabetes type 2, insulin dependent 10. Depressive disorder 11. Postop nausea or vomiting POSTOPERATIVE DIAGNOSES: 1. Morbid obesity due to excess calories 2. Body mass index of 39.6 3. Osteoarthritis of the knees. 4. Osteoarthritis of the lower back. 5. Hypertensive heart disease. 6. Gastroesophageal reflux disease 7. Generalized anxiety disorder 8. Obstructive sleep apnea 9. Diabetes type 2, insulin dependent 10. Depressive disorder 11. Postop nausea or vomiting OPERATION: 1. Robotic assisted daVinci Xi laparoscopic sleeve gastrectomy with 40-Tamazight bougie, multiport. 2. Intraoperative esophagogastroduodenoscopy. ANESTHESIA: Gen. local anesthetic ESTIMATED BLOOD LOSS: 5 mL SPECIMENS REMOVED: Sleeve gastrectomy COMPLICATIONS: None. FINDINGS: 1. Negative intraoperative esophagogastrojejunoscopy leak test. 2. No hepatomegaly and no large hiatus hernia. 3. Total of 6 staplers used including 2 - 60 mm green robot clary and 4 - 60 mm blue robot loads used to create the gastric sleeve. 4. Sleeve gastrectomy, 34 x 6 cm INDICATIONS: Guerda Nolen is a 37-year-old female who comes with lifelong morbid obesity. As result of morbid obesity, she has developed diabetes type 2, hypertensive heart disease, obstructive sleep apnea,osteoarthritis of the hips and knees. She has completed medical supervised weight loss. She completed medical including cardiac assessment. She has completed psychological risk assessment. All surgical options were reviewed. She elected for sleeve gastrectomy. At height of 6 feet 1 inches, her ideal body weight is 188 pounds. She comes in 300 pounds. Her body mass index is 39.6. She is 112 pounds overweight. All surgical options for morbid obesity had been described using the [place] bariatric surgery collaborative comorbidity resolution including complication risk score. A second-generation bariatric consent form was described in detail including the possibility of protein malnutrition, leaks, gastric stricture, venous thrombosis, gastroesophageal reflux disease, need for further surgery for which she demonstrated understanding. Benefits and risks of the procedure were described at length. Informed consent was obtained. DESCRIPTION: The patient was brought into the operating room theater. Preoperatively she had received Lovenox subcutaneously for DVT prophylaxis. Additionally she had Peridex oral solution as an oral decontaminant. After general induction, the abdomen was prepped and draped in standard sterile fashion. An Ioban draping was placed along the abdomen. A robotic da Berhane Xi system was prepped and primed. At 15 cm from the xiphoid, proposed port sites were marked with indelible marker along the anterior axillary line bilaterally, mid axillary line bilaterally with each ports were marked 10 to 15 cm from each other. The robotic stapler port was marked for the right midclavicular line. A 5 mm 0 degrees laparoscopic trocar entry was performed along the left upper quadrant. The abdomen was insufflated to 15 mmHg pressure was tolerated well. Diagnostic laparoscopy demonstrated no injury to bowel, viscera, or mesentery. No evidence of large hiatus hernia was identified. The liver edge was sharp consistent with 2 week low-carb high-protein diet. A 8 mm port was placed along the left upper abdominal wall after exchanging the 5 mm port. A separate 8 mm port was placed along the left lateral abdominal wall. Please note that the ports were placed at least 20 cm away from the target anatomy. Care was taken to check each robotic arms were safely away from collision with the bed or the patient. At the epigastrium, a medium sized Toñito liver retractor was placed under direct visualization with the Iron Dehydrogenation Converter Helper placed under the right shoulder of the patient. Next, 12-mm robot stapler port was placed along the right upper quadrant. The camera 8-mm port was maintained along the epigastrium. The patient was repositioned in reverse Trendelenburg position at 25-degrees after lowering the bed. The robot was docked along the left side of the patient. Using a grasper for arm 4, a vessel sealer for arm 3, including grasper for arm 1, the robotic system was docked and primed as described. Instruments were interchanged by the criminal legal assistant for stapler loads. The camera was placed at 30-degrees down. I had sat at the console. The pylorus was identified and 6 cm proximally along the greater curvature of the stomach, the short gastrics were mobilized upwards to the angle of His using a vessel sealer. Hemostasis was excellent during this portion of the procedure. Next, the upper pole of the stomach was adherent to the left julien, which was gently dissected free using atraumatic gras per. I went to the head of the bed and placed 40-Tamazight blunt bougie into the stomach. The bougie was readjusted by the nurse robotics systems engineer. Robotic stapler green load 60 mm 2 followed by blue 60 mm x 4 loads were used to create the sleeve. Initial firing was across the antrum of the stomach towards the angle of His. The staple line was linear without corkscrewing. The space from the angularis incisura of the sleeve was approximately 4 cm. I then went to the head of the bed to perform the intraoperative esophagogastroduodenoscopy leak test. The bougie was withdrawn. The upper pole of the stomach was bathed using normal saline solution. The scope was withdrawn with careful inspection along the staple line for which no leaks were found along the entire length. Additionally,the sleeve was completely hemostatic without any encroachment along the angularis incisura. Its topology was a soft "J". No stricture was encountered upon placement of the scope. The GI tract was desufflated. The patient tolerated this portion of the procedure well. The scope was completely withdrawn. The robot was undocked. I then rescrubbed into case, whereby the irrigation fluid was aspirated from the abdominal cavity. Tisseel fibrin sealant was placed along the entire staple length. Once dried the Toñito liver retractor was removed. Attention was now brought to removal of the specimen. The distal end of the sleeve gastrectomy specimen was brought out through the 12 mm port at the left upper quadrant. The specimen was gently removed en total. No contamination had occurred during this process. All instruments and pneumoperitoneum including irrigation fluid was removed from the abdominal cavity. The 12 mm port site was closed using 0-Vicryl and Clifton Baez and irrigated with diluted hydrogen peroxide. The final incisions were closed using subcuticular interrupted suture of 4-0 Monocryl. Exofin was applied to the skin once the skin had been cleansed. OptiFoam dressing was placed along the stomach extraction site. The sleeve specimen was measured and checked also for leaks which none were found. At the end of the procedure, needle, sponge, and instrument count was verified correct by the operating room surgical technician. The patient was taken to the postanesthesia care unit in stable condition. She had tolerated the procedure well. Intraoperative films and findings were reviewed with the patient's family. Plan - Discharge Summary Discharge Rx Participant: No New Discharge Prescriptions: No Action metFORMIN HCL [metFORMIN HCL ER Osmotic] 500 mg PO DAILY Venlafaxine HCl [Effexor XR] 225 mg PO DAILY Omeprazole 20 mg PO BID Ergocalciferol [Vitamin D2 (1250 Mcg = 99780 Iu)] 50,000 unit PO WEEKLY Discharge Medication List Omeprazole 20 mg PO BID 10/29/22 [History] Venlafaxine HCl [Effexor XR] 225 mg PO DAILY 10/29/22 [History] metFORMIN HCL [metFORMIN HCL ER Osmotic] 500 mg PO DAILY 10/29/22 [History] Ergocalciferol [Vitamin D2 (1250 Mcg = 57457 Iu)] 50,000 unit PO WEEKLY 11/06/22 [History]
[2023-04-06] MEDS ORDERED: fentaNYL PCA 500 MCG/50 ML BAG IV SCH (15:00)
[2023-04-06] MEDS: HYDROmorphone 0.5 MG/0.5 ML SYRINGE IVP PRN ×2 (15:23→16:34)
[2023-04-06 15:40] LABS: Glucose,Whole Blood 182 mg/dL (70-110)
[2023-04-06] MEDS ORDERED: DEXTROSE 50% SYRINGE 50 ML IVP PRN ×2 (18:25)
[2023-04-06] MEDS: ALBUTEROL NEBULIZED 2.5 MG/3 ML INHALATION SCH ×2 (18:35→21:00)
[2023-04-06] MEDS: ACETAMINOPHEN IV (For NPO) 1,000 MG in EMPTY BAG 1 BAG IVPB SCH (18:56)
[2023-04-06] MEDS: ONDANSETRON 4 MG/2 ML VIAL IVP SCH (19:03)
[2023-04-06] MEDS: PANTOPRAZOLE 40 MG/10 ML VIAL IV SCH (19:55)
[2023-04-06] MEDS: SIMETHICONE 40 MG/0.6 ML DROPS 2,000 MG/30 ML BOTTLE PO SCH ×2 (19:55→22:38)
[2023-04-06] MEDS: HYOSCYAMINE ORAL DROPS 1.875 MG/15 ML BOTTLE PO SCH (19:56)
[2023-04-06] MEDS ORDERED: DEXAMETHASONE SOD PHOSPHATE 10 MG/ML 1 ML VIAL IVP ONE (20:00)
[2023-04-06 20:57] LABS: Glucose,Whole Blood 129 mg/dL (70-110)
[2023-04-06] MEDS ORDERED: ceFAZolin 3 GM in SODIUM CHLORIDE 0.9% 100 ML IVPB SCH (21:00)
[2023-04-06] MEDS: INSULIN ASPART (NovoLOG) 100 UNIT/ML VIAL SQ SCH (22:07)
[2023-04-06] MEDS: 0.9% NACL WITH KCL 20 MEQ/L 1,000 ML IV SCH ×2 (22:26→22:51)
[2023-04-07] MEDS: ACETAMINOPHEN IV (For NPO) 1,000 MG in EMPTY BAG 1 BAG IVPB SCH ×3 (00:58→12:51)
[2023-04-07] MEDS: HYOSCYAMINE ORAL DROPS 1.875 MG/15 ML BOTTLE PO SCH ×3 (01:12→12:52)
[2023-04-07] MEDS: ONDANSETRON 4 MG/2 ML VIAL IVP SCH ×3 (01:12→12:50)
[2023-04-07] MEDS: DEXAMETHASONE SOD PHOSPHATE 4 MG/ML 1 ML VIAL IVP SCH ×3 (01:12→12:51)
[2023-04-07] MEDS: 0.9% NACL WITH KCL 20 MEQ/L 1,000 ML IV SCH ×2 (05:15→05:37)
[2023-04-07 05:49] LABS: Glucose,Whole Blood 213 mg/dL (70-110)
[2023-04-07] MEDS: INSULIN ASPART (NovoLOG) 100 UNIT/ML VIAL SQ SCH ×2 (06:36→12:52)
[2023-04-07] MEDS ORDERED: 0.9% NACL WITH KCL 20 MEQ/L 1,000 ML IV SCH (08:00)
[2023-04-07] MEDS ORDERED: amLODIPine 5 MG TAB PO SCH (09:00)
[2023-04-07] MEDS ORDERED: ENOXAPARIN 40 MG/0.4 ML SYRINGE SQ SCH (09:00)
[2023-04-07] MEDS: ALBUTEROL NEBULIZED 2.5 MG/3 ML INHALATION SCH ×3 (09:06→16:03)
[2023-04-07] MEDS: PANTOPRAZOLE 40 MG/10 ML VIAL IV SCH (10:05)
[2023-04-07 10:37] VITALS: BMI 38.2
[2023-04-07 10:45] LABS: Basophils # (A) 0.02 X 10*3/uL (0.00-0.10); Basophils % (A) 0.1 %; Eosinophils # (A) 0 X 10*3/uL (0.04-0.35); Eosinophils % (A) 0 %; HCT 32.8 % (37.2-46.3); HGB 11.2 g/dL (12.0-15.0); Lymphocytes # (A) 1.01 X 10*3/uL (0.90-5.00); Lymphocytes % (A) 6.2 %; MCHC 34.1 g/dL (32.0-37.0); MCV 90.9 FL (80.0-97.0); Mean Platelet Volume 10.5 FL (9.5-12.2); Monocytes # (A) 0.58 X 10*3/uL (0.20-1.00); Monocytes % (A) 3.6 %; NRBC Per 100 WBC 0 X 10*3/uL (0.00-0.01); Neutrophils # (A) 14.58 X 10*3/uL (1.80-7.70); Neutrophils % (A) 89.6 %; Platelet Count 346 X 10*3/uL (140-440); RBC 3.61 X 10*6/uL (4.10-5.20); RDW 12.3 % (11.5-14.5); WBC 16.27 X 10*3/uL (4.50-10.00)
[2023-04-07] MEDS: LACTATED RINGERS 1,000 ML IV SCH (10:46)
[2023-04-07] MEDS: SIMETHICONE 40 MG/0.6 ML DROPS 2,000 MG/30 ML BOTTLE PO SCH ×2 (10:46→14:36)
[2023-04-07] MEDS ORDERED: DEXTROSE 50% SYRINGE 50 ML IVP PRN ×2 (11:05)
[2023-04-07 11:07] LABS: Blood Urea Nitrogen 12.7 mg/dL (9.0-27.0); Calcium 8.5 mg/dL (8.7-10.3); Carbon Dioxide 20.9 mmol/L (21.6-31.8); Chloride 104 mmol/L (96-109); Magnesium 1.9 mg/dL (1.5-2.4); Phosphorus 2.4 mg/dL (2.4-5.1); Potassium 4.5 mmol/L (3.5-5.5); Sodium 135 mmol/L (135-145)
[2023-04-07] MEDS ORDERED: NON FORMULARY DRUG (Omeprazole [Omeprazole] 20 MG Capsule.Dr) PO SCH (11:15)
[2023-04-07] MEDS ORDERED: VENLAFAXINE HCL ER 75 MG CAP PO SCH (11:30)
--- NOTE | 2023-04-07 12:18 | FL ---
EXAMINATION TYPE: FL UGI DATE OF EXAM: 04/07/2023 COMPARISON: None HISTORY: Gastric sleeve TECHNIQUE: A single contrast UGI study is performed. FINDINGS: Contrast passes from the distal esophagus through the gastric sleeve with mild hesitancy. N o extravasation of contrast is evident. No free air is noted during this examination. Overhead radiographs were not obtained. The patient became weak and refused additional imaging IMPRESSION: 1. Limited post gastric sleeve without obvious extravasation, obstruction or hesitancy.
[2023-04-07 12:19] LABS: Glucose,Whole Blood 159 mg/dL (70-110)
[2023-04-07 13:04] VITALS: PULSE 98
--- NOTE | 2023-04-07 13:28 | P.CONS ---
History of Present Illness - Reason for Consult Consult date: 04/07/23 Medical management Requesting physician: Alejandra Morrow - Chief Complaint Sleeve gastrectomy - History of Present Illness This is a pleasant 37-year-old patient who follows with Dr. Félix Velázquez. Chronic stable medical conditions include diabetes mellitus type 2, depression, GERD. Patient yesterday underwent sleeve gastrectomy by Dr. Calderon for morbid obesity. Having failed outpatient conservative treatment plan. Patient's blood pressure is noted to be running higher side. Patient is responding a little bit difficult to take a deep breath. Has discomfort in the upper abdomen. Has a binder in place. No cough. No fever no chills. Patient is an ex-smoker and also did marijuana in the past. Stopped about 4 months ago. Patient's blood pressures been noted to be running high here. Patient states that her blood pressures always well controlled. She is in some pain. Rather anxious. Review of systems: GEN.: Tired EYES: None HEENT: None NECK: None RESPIRATORY: As above CARDIOVASCULAR: None GASTROINTESTINAL: As above GENITOURINARY: None MUSCULOSKELETAL: None LYMPHATICS: None HEMATOLOGICAL: None PSYCHIATRY: None NEUROLOGICAL: None Past medical history to include: Diabetes, depression, GERD, kidney stones Social history: Patient smoked about half a pack a day for 18 years stopped about 4 months ago. Was taking marijuana a few months ago. Lives with her fiance and children. Physical examination: VITAL SIGNS: 98.8, 93, 19, 143/92, 93% room air GENERAL: BMI 38.3, laying a bit uncomfortable. EYES: Pupils equal. Conjunctiva normal. HEENT: External appearance of nose and ears normal, oral cavity grossly normal. NECK: JVD not raised; masses not palpable. HEART: First and second heart sounds are normal; no edema. LUNGS: Respiratory rate normal; clear to auscultation. ABDOMEN: Soft, upper abdominal tenderness, no guarding rigidity, liver spleen not palpable, no masses palpable. PSYCH: [Alert and oriented x3; mood and affect anxious l. MUSCULOSKELETAL:No Clubbing/cyanosis;muscles-grossly intact NEUROLOGICAL: Cranial nerves grossly intact; no facial asymmetry, power and sensation grossly intact. LYMPHATICS: No lymph nodes palpable in the axilla and neck INVESTIGATIONS, reviewed in the clinical context: 04/07/2023: White count 16.2 hemoglobin 11.2 platelets 346 sodium 135 potassium 4.5 creatinine 0.6 Upper GI fluoroscopy: No obvious extravasation, obstruction or hesitancy. Assessment and plan: -Elevated blood pressure. Patient normally has good blood pressure readings at home. Patient is having discomfort from her surgical pain. Also very anxious. That is likely cause of elevated blood pressure. At this point controlled underlying reasons not to indication currently for any antihypertensive. -Depression otherwise specified Effexor X -GERD Omeprazole -Obesity BMI 38.3 Patient is undergone sleeve gastrectomy. On bariatric clear liquid diet. Discussed with patient. On fentanyl pain pump. Questions answered. Home medications reviewed. Thank you Dr. Calderon Past Medical History Past Medical History: Diabetes Mellitus Additional Past Medical History / Comment(s): kidney stones History of Any Multi-Drug Resistant Organisms: None Reported Past Surgical History: Adenoidectomy, Bariatric Surgery, Cholecystectomy, Hysterectomy, Tonsillectomy, Tubal Ligation Additional Past Surgical History / Comment(s): lithotripsy. sleeve gastrectomy 04-06-23 Past Anesthesia/Blood Transfusion Reactions: Postoperative Nausea & Vomiting (PONV) Past Psychological History: Anxiety, Depression Smoking Status: Former smoker Past Alcohol Use History: None Reported Additional Past Alcohol Use History / Comment(s): Quit smoking 2022 Past Drug Use History: Marijuana Additional Drug Use History / Comment(s): refrain 24 hours priot to surgery - Past Family History Father Family Medical History: Cancer Additional Family Medical History / Comment(s): lung Medications and Allergies Home Medications Medication Instructions Recorded Confirmed Type Omeprazole 20 mg PO BID 10/29/22 04/06/23 History Venlafaxine HCl [Effexor XR] 225 mg PO DAILY 10/29/22 04/06/23 History metFORMIN HCL [metFORMIN HCL ER 500 mg PO DAILY 10/29/22 04/06/23 History Osmotic] Ergocalciferol [Vitamin D2 (1250 50,000 unit PO WEEKLY 11/06/22 04/06/23 History Mcg = 68916 Iu)] Allergies Allergy/AdvReac Type Severity Reaction Status Date / Time cephalexin [From Keflex] AdvReac Unknown Verified 04/06/23 12:04 ethinyl estradiol AdvReac Nausea & Verified 04/06/23 12:04 [From Sprintec (28)] Vomiting & Diarrhea norgestimate AdvReac Nausea & Verified 04/06/23 12:04 [From [facility] (28)] Vomiting & Diarrhea Physical Exam Vitals: Vital Signs Temp Pulse Pulse Pulse Pulse Resp BP 04/07/23 09:15 103 H 04/07/23 09:09 04/07/23 09:06 104 H 04/07/23 07:25 93 19 04/07/23 07:00 98.8 F 93 19 143/92 04/07/23 02:00 98.4 F 103 H 16 04/06/23 21:09 92 04/06/23 21:03 04/06/23 21:02 92 04/06/23 19:30 97.7 F 95 16 04/06/23 18:01 97.4 F L 88 17 170/93 04/06/23 17:00 91 16 167/78 04/06/23 16:30 92 16 170/79 04/06/23 16:00 88 16 169/79 04/06/23 15:45 89 16 169/76 04/06/23 15:30 96 16 163/77 04/06/23 15:24 87 16 161/75 04/06/23 15:09 82 14 179/84 04/06/23 14:54 82 14 162/80 04/06/23 14:39 98.8 F 88 14 156/69 04/06/23 11:48 97.3 F L 90 16 BP Pulse Ox 04/07/23 09:15 04/07/23 09:09 94 L 04/07/23 09:06 04/07/23 07:25 04/07/23 07:00 93 L 04/07/23 02:00 159/97 97 04/06/23 21:09 04/06/23 21:03 96 04/06/23 21:02 04/06/23 19:30 163/105 96 04/06/23 18:01 96 04/06/23 17:00 94 L 04/06/23 16:30 95 04/06/23 16:00 95 04/06/23 15:45 96 04/06/23 15:30 96 04/06/23 15:24 94 L 04/06/23 15:09 97 04/06/23 14:54 98 04/06/23 14:39 98 04/06/23 11:48 154/73 98 Intake and Output 04/06/23 04/07/23 04/07/23 22:59 06:59 14:59 Intake Total 500 Balance 500 Intake: IV 500 Other: # Voids 1 4 Weight 131.7 kg 131.7 kg Results CBC & Chem 7: 04/07/23 06:38 04/07/23 06:38 Labs: Abnormal Lab Results - Last 24 Hours (Table) 04/06/23 04/06/23 04/06/23 Range/Units 12:26 15:39 20:55 WBC (4.50-10.00) X 10*3/uL RBC (4.10-5.20) X 10*6/uL Hgb (12.0-15.0) g/dL Hct (37.2-46.3) % Immature Gran # (0.00-0.04) X 10*3/uL Neutrophils # (1.80-7.70) X 10*3/uL Eosinophils # (0.04-0.35) X 10*3/uL Carbon Dioxide 20 L (22-30) mmol/L Glucose 100 H (74-99) mg/dL POC Glucose (mg/dL) 182 H 129 H (70-110) mg/dL AST 51 H (14-36) U/L ALT 68 H (4-34) U/L 04/07/23 04/07/23 Range/Units 05:47 06:38 WBC 16.27 H (4.50-10.00) X 10*3/uL RBC 3.61 L (4.10-5.20) X 10*6/uL Hgb 11.2 L (12.0-15.0) g/dL Hct 32.8 L (37.2-46.3) % Immature Gran # 0.08 H (0.00-0.04) X 10*3/uL Neutrophils # 14.58 H (1.80-7.70) X 10*3/uL Eosinophils # 0 L (0.04-0.35) X 10*3/uL Carbon Dioxide (22-30) mmol/L Glucose (74-99) mg/dL POC Glucose (mg/dL) 213 H (70-110) mg/dL AST (14-36) U/L ALT (4-34) U/L
--- NOTE | 2023-04-07 15:51 | P.DS ---
Providers Date of admission: 04/06/23 14:25 Expected date of discharge: 04/07/23 Attending physician: Alejandra Morrow Consults: 04/07/23 11:24 Consult Physician Routine Consulting Provider: Driss Moore Consult Reason/Comments: uncontrolled HTN Do you want consulting provider notified?: Yes Primary care physician: [facility] Course: Discharge diagnosis 1. Morbid obesity due to excess calories 2. Body mass index of 39.6 3. Osteoarthritis of the knees. 4. Osteoarthritis of the lower back. 5. Hypertensive heart disease. 6. Gastroesophageal reflux disease 7. Generalized anxiety disorder 8. Obstructive sleep apnea 9. Diabetes type 2, insulin dependent 10. Depressive disorder 11. Postop nausea or vomiting 12. Leukocytosis likely steroid induced from decadron Hospital course Guerda Nolen is a 37-year-old female who comes with lifelong morbid obesity. As result of morbid obesity, she has developed diabetes type 2, hypertensive heart disease, obstructive sleep apnea,osteoarthritis of the hips and knees. She is status post Robotic assisted daVinci Xi laparoscopic sleeve gastrectomy. Patient's pain is controlled. She has been up and ambulating. She is having flatus. She is tolerating diet. Upper GI shows no evidence of leak or obstruction. She is afebrile. She is stable for discharge. Physician Chainstitch Felled Seam Operator note has been reviewed by physician. Signing provider agrees with the documented findings, assessment, and plan of care. Patient Condition at Discharge: Stable Plan - Discharge Summary Discharge Rx Participant: No New Discharge Prescriptions: New Simethicone 40 mg/0.6 ml Drops [Mylicon Drops] 40 mg PO PCHS PRN #30 ml PRN Reason: Gas Omeprazole [PriLOSEC] 40 mg PO DAILY #30 cap Ondansetron Odt [Zofran Odt] 4 mg PO Q8HR PRN #9 tab PRN Reason: Nausea bisacodyL [Dulcolax] 5 mg PO DAILY PRN #10 tab PRN Reason: Constipation Acetaminophen Tab [Tylenol] 1,000 mg PO Q6HR PRN #30 tablet PRN Reason: Pain Continue metFORMIN HCL [metFORMIN HCL ER Osmotic] 500 mg PO DAILY Venlafaxine HCl [Effexor XR] 225 mg PO DAILY Discontinued Omeprazole 20 mg PO BID No Action Ergocalciferol [Vitamin D2 (1250 Mcg = 47843 Iu)] 50,000 unit PO WEEKLY Discharge Medication List Venlafaxine HCl [Effexor XR] 225 mg PO DAILY 10/29/22 [History] metFORMIN HCL [metFORMIN HCL ER Osmotic] 500 mg PO DAILY 10/29/22 [History] Ergocalciferol [Vitamin D2 (1250 Mcg = 32764 Iu)] 50,000 unit PO WEEKLY 11/06/22 [History] Acetaminophen Tab [Tylenol] 1,000 mg PO Q6HR PRN #30 tablet 04/07/23 [Rx] Omeprazole [PriLOSEC] 40 mg PO DAILY #30 cap 04/07/23 [Rx] Ondansetron Odt [Zofran Odt] 4 mg PO Q8HR PRN #9 tab 04/07/23 [Rx] Simethicone 40 mg/0.6 ml Drops [Mylicon Drops] 40 mg PO PCHS PRN #30 ml 04/07/23 [Rx] bisacodyL [Dulcolax] 5 mg PO DAILY PRN #10 tab 04/07/23 [Rx] [place] [facility]10/23 9:00 am Patient Instructions/Handouts: Nutrition after Bariatric Surgery (DC), Laparoscopic Sleeve Gastrectomy (DC) Activity/Diet/Wound Care/Special Instructions: Liquid diet only for 2 weeks No lifting over 4 pounds in 4 weeks May Shower. No soaking in bath tubs for 2 weeks Please notify your surgeon if you develop nausea and vomiting including new onset of abdominal pain. Continue to use incentive spirometry to prevent pneumonias. Please continue to ambulate at home to prevent blood clots in legs. Follow-up at the bariatric center. May shower. Dressings to be discontinued by surgeon in the office. Drink 64 oz of fluid daily. Start protein shakes on . Notify bariatric center for temp over 101.0, increased pain, drainage from incisions. No straws or carbonated beverages. Liquid diet only. Sugar content should be less than 6 g to avoid dumping syndrome. Take MOM for constipation. CRUSH, OPEN, OR CUT TABLETS LARGER THAN A SIZE OF A TIC TAC Hold on taking vitamins until seen by surgeon due to increase bleeding risk Discharge Disposition: HOME SELF-CARE
[2023-04-07 16:17] VITALS: BP 134/80; RESP 20; TEMP 98.6
== END 2023-04-07 17:00 | disposition home or self-care (01) ==
LOC: OR 11:34 → 4SSUR 14:25
PROVIDERS: ADMIT Surgery Plastic and Reconstructive Surgery; ATTEND Surgery Plastic and Reconstructive Surgery
DX: E66.01 Morbid (severe) obesity due to excess calories (principal); G47.33 Obstructive sleep apnea (adult) (pediatric); Z68.39 Body mass index [BMI] 39.0-39.9, adult; I11.9 Hypertensive heart disease without heart failure; K21.9 Gastro-esophageal reflux disease without esophagitis; E11.9 Type 2 diabetes mellitus without complications; M17.0 Bilateral primary osteoarthritis of knee; F41.1 Generalized anxiety disorder; F32.A Depression, unspecified; D72.829 Elevated white blood cell count, unspecified; Z90.49 Acquired absence of other specified parts of digestive tract; Z90.710 Acquired absence of both cervix and uterus; Z87.891 Personal history of nicotine dependence; Z79.899 Other long term (current) drug therapy; Z79.4 Long term (current) use of insulin; Z87.442 Personal history of urinary calculi; Z79.84 Long term (current) use of oral hypoglycemic drugs; M16.0 Bilateral primary osteoarthritis of hip
CPT/HCPCS: 96376; 96365; 96367 ×2; 96372 ×2; 96366 ×2; 94640 ×4; 94760 ×2; 97161; 97165; 80051; 80053; 82310; 82565; 83735; 84100; 84520; 85025 ×2; 88307; 83036; 74240; 43235; 43775; G0378 ×2; J2250; J0330; J1200; J1100 ×3; J2710; J0690; J2405 ×2; J2001; J1650 ×2; J3010 ×2; J1170 ×2; J0131 ×2; J1885; J2704; C9113 ×2; Q9967; J1920

== ENCOUNTER → 2023-04-10 | Outpatient (CLI) | payer BC, OTHER ==
[2023-04-10] MEDS: SODIUM CHLORIDE 0.9% 1,000 ML IV SCH ×2 (09:40→11:03)
[2023-04-10 10:39] VITALS: BP 138/87; PULSE 111; RESP 18; TEMP 98.4
== END ==
LOC: PROCWHC3 09:35
PROVIDERS: ATTEND Surgery Plastic and Reconstructive Surgery
DX: E86.0 Dehydration (principal); Z88.1 Allergy status to other antibiotic agents; Z88.8 Allergy status to other drugs, medicaments and biological substances
CPT/HCPCS: 96360; 96361

== ENCOUNTER → 2023-04-10 | Outpatient (CLI) | payer BC, OTHER ==
--- NOTE | 2023-04-10 09:34 | P.BASOAP ---
Subjective Progress Note Date: 04/10/23 DATE: 04/10/2023 CHIEF COMPLAINT: Status post sleeve gastrectomy HISTORY OF PRESENT ILLNESS: Guerda Nolen is a 37-year-old status post sleeve gastrectomy 04/06/2023. She reports difficulty with keeping her fluid intake which is 24 ounces daily. Urine is dark. She reports chronic diarrhea due to pre-existing cholecystectomy. No moderate gastroesophageal reflux disease. She reports chest pressure with swallows. At height of 6 feet 1 inches, her ideal body weight is 188 pounds. She comes in 284 pounds from 300 pounds. She has lost 15 pounds in 2 weeks. Her body mass index is 39.6 now 37.5 . She is 97 pounds overweight. PHYSICAL EXAM: VITAL SIGNS: Height 6 foot 1 inches, weight 284 pounds. BMI 37.5 GENERAL: Well-developed in no acute distress. HEENT: No scleral icterus. Extraocular movements grossly intact. Hears conversational speech. No nasal drainage. NECK: Supple without lymphadenopathy. CHEST: Nonlabored respirations with equal bilateral excursions. CARDIOVASCULAR: Distal 2+ pulses. ABDOMEN: Incision and intact. Dressing discontinued. No infection. MUSCULOSKELETAL: No clubbing, cyanosis. NEURO: No focal or lateralizing signs. Cranial nerves 2 through 12 grossly within normal limits. PSYCH: Appropriate affect. Alert and oriented to person, place and time. SKIN: Good skin turgor. Well perfused. Final Pathologic Diagnosis PORTION OF STOMACH, SLEEVE GASTRECTOMY: Benign gastric mucosa with mild chronic gastritis. Helicobacter pylori organisms are not identified on routine H+E sections. ASSESSMENT: 1. Morbid obesity due to excess calories 2. Body mass index of 39.6, now 37.5 3. Osteoarthritis of the knees. 4. Osteoarthritis of the lower back. 5. Hypertensive heart disease. 6. Gastroesophageal reflux disease 7. Generalized anxiety disorder 8. Obstructive sleep apnea 9. Diabetes type 2, insulin dependent 10. Depressive disorder 11. Postop nausea or vomiting 12. Status post sleeve gastrectomy 13. Dehydration due to poor fluid intake PLAN: 1. She has dehydration due to poor fluid intake and recommend one to 2 L normal saline bolus. 2. Start protein shakes goal over 75 g daily 3. May need future fluid boluses 4. Nurse visits described as I will be out of town for 3 weeks 5. Return to work delayed until 05/18/2023 Assessment/Plan Plan: Date: Initial Weight: Initial BMI: Current Weight: Current BMI: Type of Surgery: Total Volume in Band: Previous Volume: Volume Removed: Volume Added: Band Size:
[2023-04-10 09:51] VITALS: BP 138/87; PULSE 111; RESP 13; TEMP 98.4; BMI 37.8
== END ==
LOC: BARWHC3 09:03
PROVIDERS: ATTEND Surgery Plastic and Reconstructive Surgery
DX: E66.01 Morbid (severe) obesity due to excess calories (principal); M17.0 Bilateral primary osteoarthritis of knee; I11.0 Hypertensive heart disease with heart failure; K21.9 Gastro-esophageal reflux disease without esophagitis; F41.1 Generalized anxiety disorder; G47.33 Obstructive sleep apnea (adult) (pediatric); E11.9 Type 2 diabetes mellitus without complications; F32.A Depression, unspecified; Z90.49 Acquired absence of other specified parts of digestive tract; E86.0 Dehydration; M47.816 Spondylosis without myelopathy or radiculopathy, lumbar region; Z68.39 Body mass index [BMI] 39.0-39.9, adult; R11.2 Nausea with vomiting, unspecified; Z79.84 Long term (current) use of oral hypoglycemic drugs; Z88.1 Allergy status to other antibiotic agents; Z91.09 Other allergy status, other than to drugs and biological substances; Z91.018 Allergy to other foods
CPT/HCPCS: 99211

== ENCOUNTER → 2023-04-15 | Outpatient (CLI) | payer BC, OTHER ==
[2023-04-15 11:47] VITALS: BMI 36.3
[2023-04-15 15:23] VITALS: BP 120/84; PULSE 99; TEMP 98.1
== END ==
LOC: BARWHC3 10:54
PROVIDERS: ATTEND Surgery Plastic and Reconstructive Surgery
DX: E66.01 Morbid (severe) obesity due to excess calories (principal); Z71.3 Dietary counseling and surveillance; Z68.36 Body mass index [BMI] 36.0-36.9, adult; Z88.1 Allergy status to other antibiotic agents; Z88.8 Allergy status to other drugs, medicaments and biological substances
CPT/HCPCS: 97802; 99211

== ENCOUNTER → 2023-05-06 | Outpatient (CLI) | payer BC, OTHER ==
--- NOTE | 2023-05-06 15:10 | P.BASOAP ---
Subjective Progress Note Date: 05/06/23 She lost 40 pounds. She wants to get 200 pounds. NO GERD. Omeprazole to be finish. Labs started and MVI. She is doing well. Objective - Vital Signs Vital signs: Vital Signs Temp 98 F 05/06/23 14:43 Pulse 80 05/06/23 14:43 Resp 16 05/06/23 14:43 BP 126/77 05/06/23 14:43 Pulse Ox FiO2 Intake & Output 05/05/23 05/06/23 05/06/23 18:59 06:59 18:59 Weight 123.377 kg Assessment/Plan Plan: Date: 05/06/23 Initial Weight: 123.377 kg Initial BMI: 36.3 Current Weight: 123.377 kg Current BMI: 36.3 Type of Surgery: Vertical Sleeve Gastrectomy Total Volume in Band: Previous Volume: Volume Removed: Volume Added: Band Size:
[2023-05-06 15:14] VITALS: BP 126/77; PULSE 80; RESP 16; TEMP 98; BMI 36.3
[2023-05-07 02:45] LABS: HCT 39.5 % (37.2-46.3); HGB 12.7 g/dL (12.0-15.0); MCHC 32.2 g/dL (32.0-37.0); MCV 93.2 FL (80.0-97.0); Mean Platelet Volume 11.6 FL (9.5-12.2); NRBC Per 100 WBC 0 X 10*3/uL (0.00-0.01); Platelet Count 246 X 10*3/uL (140-440); RBC 4.24 X 10*6/uL (4.10-5.20); RDW 13.1 % (11.5-14.5); WBC 7.77 X 10*3/uL (4.50-10.00)
[2023-05-07 02:58] LABS: Prealbumin 19.8 mg/dL (18.0-42.0)
[2023-05-07 03:44] LABS: % Iron Saturation 12.81 (12.00-45.00); ALT 36 U/L (8-44); AST 25 U/L (13-35); Albumin 4.3 g/dL (3.8-4.9); Albumin/Globulin Ratio 1.72 Ratio (1.60-3.17); Alkaline Phosphatase 92 U/L (41-126); BUN/Creat Ratio 15.71 Ratio (12.00-20.00); Calcium 9.4 mg/dL (8.7-10.3); Carbon Dioxide 22.3 mmol/L (21.6-31.8); Chloride 105 mmol/L (96-109); Chol/HDL Ratio 4.38 Ratio; Globulin 2.5 g/dL (1.6-3.3); Glucose 86 mg/dL (70-110); Iron 47 UG/DL (50-170); LDL Cholesterol,Calculated 96.2 mg/dL (0.0-131.0); Phosphorus 3.6 mg/dL (2.4-5.1); Sodium 142 mmol/L (135-145); Total Bilirubin 0.4 mg/dL (0.3-1.2); Total Iron Binding Capacity 367 UG/DL (228-460); Total Protein 6.8 g/dL (6.2-8.2)
[2023-05-07 13:06] LABS: Zinc, Serum 82 ug/dL (60-130)
[2023-05-08 06:45] LABS: Vitamin A 48 ug/dL (38-106)
[2023-05-08 11:02] LABS: Vit B1(Thiamine) 43 ug/L (38-122)
[2023-05-09 18:53] LABS: Selenium 130 mcg/L (63-160)
== END ==
LOC: BARWHC3 13:45
PROVIDERS: ATTEND Surgery Plastic and Reconstructive Surgery
DX: E66.01 Morbid (severe) obesity due to excess calories (principal); D50.8 Other iron deficiency anemias; D50.9 Iron deficiency anemia, unspecified; E44.0 Moderate protein-calorie malnutrition; E44.1 Mild protein-calorie malnutrition; E45 Retarded development following protein-calorie malnutrition; E46 Unspecified protein-calorie malnutrition; E55.9 Vitamin D deficiency, unspecified; K74.1 Hepatic sclerosis; N19 Unspecified kidney failure; K50.90 Crohn's disease, unspecified, without complications; T56.894A Toxic effect of other metals, undetermined, initial encounter; Z71.3 Dietary counseling and surveillance; Z88.1 Allergy status to other antibiotic agents; Z88.8 Allergy status to other drugs, medicaments and biological substances
CPT/HCPCS: 80053; 80061; 82306; 82525; 82607; 82728; 82746; 83036; 83540; 83550; 83735; 83970; 84100; 84134; 84255; 84425; 84443; 84590; 84630; 85027; 97803; 99211

== ENCOUNTER → 2023-07-29 | Outpatient (CLI) | payer BC, OTHER ==
--- NOTE | 2023-07-29 14:08 | P.BASOAP ---
Subjective Progress Note Date: 07/29/23 Date: 07/29/23 CHIEF COMPLAINT: Status post sleeve gastrectomy HISTORY OF PRESENT ILLNESS: Guerda Nolen is a 37-year-old female status post sleeve gastrectomy, 04/06/2023. She is over 4 months postop. Prior to surgery, she was insulin. She now off Metformin with A1c down. She has no change in her energy. She reports low intake of water and protein intake is low. She has hair loss. She is using brand [employer] for multivitamins. She denies gastroesophageal reflux disease. No abdominal pain. She has nausea. At height of 6 feet 0.5 inches, her ideal body weight is 183 pounds. Her highest weight was 309 pounds with body mass index 41.6. She comes in 252 pounds from 300 pounds 4 months ago. Her body mass index is 33.7. She has lost 49 pounds in 4 months. Lifetime weight loss 57 pounds. Lifetime percent excess weight loss 57%. She is 69 pounds overweight. PHYSICAL EXAM: VITAL SIGNS: Height 6 foot 1 inches, weight 300 pounds. BMI 39.6 Vital Signs Temp 98.6 F 07/29/23 14:15 Pulse 69 07/29/23 14:15 Resp 16 07/29/23 14:15 BP 129/81 07/29/23 14:15 Pulse Ox FiO2 GENERAL: Well-developed in no acute distress. HEENT: No scleral icterus. Extraocular movements grossly intact. Hears conversational speech. No nasal drainage. NECK: Supple without lymphadenopathy. CHEST: Nonlabored respirations with equal bilateral excursions. CARDIOVASCULAR: Regular rate and regular rhythm. Distal 2+ pulses. ABDOMEN: Obese, soft, nontender, nondistended. No hernias. MUSCULOSKELETAL: No clubbing, cyanosis. NEURO: No focal or lateralizing signs. Cranial nerves 2 through 12 grossly within normal limits. PSYCH: Appropriate affect. Alert and oriented to person, place and time. SKIN: Good skin turgor. Well perfused. LABS: Reviewed from April 2023. Hemoglobin A1c 5.3. Iron is low at 47. Triglycerides elevated. ASSESSMENT: 1. Morbid obesity due to excess calories 2. Body mass index of 41.6 to 33.7 3. Osteoarthritis of the knees. 4. Osteoarthritis of the lower back. 5. Hypertensive heart disease. 6. Gastroesophageal reflux disease 7. Generalized anxiety disorder 8. Obstructive sleep apnea 9. Diabetes type 2, insulin dependent 10. Depressive disorder 11. Postop nausea or vomiting 12. Status post sleeve gastrectomy 13. Iron deficiency 14. Hypertriglyceridemia PLAN: 1. She has low energy and recommend adjusting multivitamin to alive ultra for women. 2. Recommend repeat bariatric labs. Objective - Labs CBC & Chem 7: 07/29/23 14:19 07/29/23 14:19 Assessment/Plan Plan: Date: Initial Weight: 123.377 kg Initial BMI: Current Weight: Current BMI: Type of Surgery: Total Volume in Band: Previous Volume: Volume Removed: Volume Added: Band Size:
[2023-07-29 14:18] VITALS: BP 129/81; PULSE 69; RESP 16; TEMP 98.6; BMI 33.7
[2023-07-29 15:05] LABS: INR 0.9 (<1.2); Partial Thromboplastin Time 29.4 sec (22.0-30.0); Prothrombin Time 10.5 sec (10.0-12.5)
[2023-07-29 19:00] LABS: HCT 38.1 % (37.2-46.3); HGB 12.7 g/dL (12.0-15.0); MCH 29.8 pg (27.0-32.0); MCHC 33.3 g/dL (32.0-37.0); MCV 89.4 FL (80.0-97.0); Mean Platelet Volume 10.5 FL (9.5-12.2); NRBC Per 100 WBC 0 X 10*3/uL (0.00-0.01); Platelet Count 292 X 10*3/uL (140-440); RBC 4.26 X 10*6/uL (4.10-5.20); RDW 12.9 % (11.5-14.5)
[2023-07-29 20:02] LABS: % Iron Saturation 12.43 (12.00-45.00); ALT 19 U/L (8-44); AST 20 U/L (13-35); Albumin 4.5 g/dL (3.8-4.9); Albumin/Globulin Ratio 1.96 Ratio (1.60-3.17); Alkaline Phosphatase 98 U/L (41-126); BUN/Creat Ratio 19.71 Ratio (12.00-20.00); Blood Urea Nitrogen 13.8 mg/dL (9.0-27.0); Calcium 9.5 mg/dL (8.7-10.3); Carbon Dioxide 23.2 mmol/L (21.6-31.8); Chloride 104 mmol/L (96-109); Chol/HDL Ratio 4.13 Ratio; Ferritin 99.6 ng/mL (10.0-291.0); Globulin 2.3 g/dL (1.6-3.3); Glucose 87 mg/dL (70-110); Iron 44 UG/DL (50-170); LDL Cholesterol,Calculated 113.4 mg/dL (0.0-131.0); Magnesium 2.1 mg/dL (1.5-2.4); Phosphorus 3.5 mg/dL (2.4-5.1); Potassium 4.2 mmol/L (3.5-5.5); Sodium 140 mmol/L (135-145); Total Bilirubin 0.3 mg/dL (0.3-1.2); Total Iron Binding Capacity 354 UG/DL (228-460); Total Protein 6.8 g/dL (6.2-8.2)
[2023-07-29 22:27] LABS: Prealbumin 19.9 mg/dL (18.0-42.0)
[2023-07-30 10:32] LABS: Zinc, Serum 67 ug/dL (60-130)
[2023-07-31 07:01] LABS: Vitamin A 50 ug/dL (38-106)
[2023-07-31 07:16] LABS: Vit B1(Thiamine) 50 ug/L (38-122)
[2023-08-02 07:41] LABS: Selenium 127 mcg/L (63-160)
== END ==
LOC: BARWHC3 13:22
PROVIDERS: ATTEND Surgery Plastic and Reconstructive Surgery
DX: E66.01 Morbid (severe) obesity due to excess calories (principal); K90.89 Other intestinal malabsorption; E89.1 Postprocedural hypoinsulinemia; D50.8 Other iron deficiency anemias; K74.1 Hepatic sclerosis; N19 Unspecified kidney failure; T56.894A Toxic effect of other metals, undetermined, initial encounter; M17.0 Bilateral primary osteoarthritis of knee; M47.816 Spondylosis without myelopathy or radiculopathy, lumbar region; I11.9 Hypertensive heart disease without heart failure; K21.9 Gastro-esophageal reflux disease without esophagitis; F41.1 Generalized anxiety disorder; G47.33 Obstructive sleep apnea (adult) (pediatric); E11.9 Type 2 diabetes mellitus without complications; F32.A Depression, unspecified; D50.9 Iron deficiency anemia, unspecified; E78.1 Pure hyperglyceridemia; K91.89 Other postprocedural complications and disorders of digestive system; R11.2 Nausea with vomiting, unspecified; K50.90 Crohn's disease, unspecified, without complications; Z71.3 Dietary counseling and surveillance; Z98.84 Bariatric surgery status; Z90.3 Acquired absence of stomach [part of]; Z88.1 Allergy status to other antibiotic agents; Z88.8 Allergy status to other drugs, medicaments and biological substances; Z68.33 Body mass index [BMI] 33.0-33.9, adult; Z79.899 Other long term (current) drug therapy; Z79.4 Long term (current) use of insulin
CPT/HCPCS: 80053; 80061; 82306; 82525; 82607; 82728; 82746; 83036; 83540; 83550; 83735; 83970; 84100; 84134; 84255; 84425; 84443; 84590; 84630; 85027; 85610; 85730; 97803; 99211

== ENCOUNTER 2023-09-15 12:32 | Day surgery (SDC) | payer BC, OTHER ==
[2023-09-10 16:20] VITALS: BMI 31.5
--- NOTE | 2023-09-14 08:06 | P.HPIHPCON ---
History of Present Illness H&P Date: 09/14/23 Chief Complaint: right Ureteral stone Is a 78-year-old female with history of a 9 mm right-sided proximal stone. She is symptomatic from her stone. Of note she does have history of hepatomegaly, discussed with her given that finding ureteroscopy with holmium laser is the p referred route over ESWL, aware of the risk which includes but not limited to bleeding, infection, injury to the ureter Consent for Procedure: I have explained the operation/procedure to the patient, including the risks, benefits, side effects, alternative therapies (including not receiving the proposed treatment or service), the likelihood of the patient achieving his/her goals, and potential recuperation problems for the procedure/sedation/analgesia, as well as any blood products, if indicated. I also explained to the patient the risks, benefits and side effects of the alternatives, as well as the risks related to not receiving the proposed procedure, care, treatment, or services. Past Medical History Past Medical History: Diabetes Mellitus Additional Past Medical History / Comment(s): Hx and current kidney stones. Diet Controlled Diabetes. History of Any Multi-Drug Resistant Organisms: None Reported Past Surgical History: Adenoidectomy, Bariatric Surgery, Cholecystectomy, Hysterectomy, Orthopedic Surgery, Tonsillectomy, Tubal Ligation Additional Past Surgical History / Comment(s): Lithotripsy, sleeve gastrectomy 04-06-23, carpal tunnel release. Past Anesthesia/Blood Transfusion Reactions: Postoperative Nausea & Vomiting (PONV) Smoking Status: Former smoker - Past Family History Father Family Medical History: Cancer Additional Family Medical History / Comment(s): Lung cancer. Medications and Allergies Home Medications Medication Instructions Recorded Confirmed Type Venlafaxine HCl [Effexor XR] 225 mg PO QAM 10/29/22 09/11/23 History Ergocalciferol [Vitamin D2 (1250 50,000 unit PO WEEKLY 11/06/22 09/11/23 History Mcg = 24433 Iu)] Ketorolac [Toradol] 10 mg PO Q6HR PRN 09/11/23 09/11/23 History Multivitamins, Thera [Multivitamin 1 tab PO DAILY 09/11/23 09/11/23 History (formulary)] Tamsulosin [Flomax] 0.4 mg PO DAILY 09/11/23 09/11/23 History Allergies Allergy/AdvReac Type Severity Reaction Status Date / Time cephalexin [From Keflex] AdvReac Unknown Verified 09/10/23 16:09 ethinyl estradiol AdvReac Nausea & Verified 09/10/23 16:09 [From Sprintec (28)] Vomiting & Diarrhea norgestimate AdvReac Nausea & Verified 09/10/23 16:09 [From Sprintec (28)] Vomiting & Diarrhea Surgical - Exam - General no distress, moderate pain - Eyes normal ocular movement, no pale - ENT normal nares, normal mucosa - Respiratory normal expansion, normal respiratory effort - Abdomen Abdomen: soft, non tender - Psychiatric oriented to time, oriented to person, oriented to place Assessment and Plan Assessment: OR for right sided ureteroscopy, laser lithotripsy, stone basketing and stent insertion
[2023-09-15] MEDS: IV FLUID CONTINUATION 1,000 ML IV ONE (13:51)
[2023-09-15] MEDS: LACTATED RINGERS 1,000 ML IV SCH (13:52)
[2023-09-15] MEDS: ONDANSETRON 4 MG/2 ML VIAL IVP ONE (13:53)
[2023-09-15] MEDS: DEXAMETHASONE SOD PHOSPHATE 4 MG/ML 1 ML VIAL IV ONE (13:53)
--- NOTE | 2023-09-15 13:54 | XR ---
EXAMINATION TYPE: XR KUB DATE OF EXAM: 09/15/2023 12:46 PM CLINICAL INDICATION:Female, 38 years old with history of N20.1 ureteral stone; COMPARISON: None. TECHNIQUE: One radiographic view of the abdomen was obtained. FINDINGS: The bowel gas pattern is nonspecific without dilated loops of small or large bowel. There i s no evidence for organomegaly or pneumoperitoneum. The osseous structures are intact. Right renal calculi measuring up to 9 mm. Fecal material and gas are demonstrated throughout the colon and rectum . Surgical clips project in the pelvis. Right upper quadrant cholecystectomy clips. IMPRESSION: Nonspecific bowel gas pattern without radiographic evidence for acute process.
[2023-09-15 14:04] LABS: Glucose,Whole Blood 81 mg/dL (70-110)
[2023-09-15] MEDS ORDERED: fentaNYL (PF) 50 MCG/ML 2 ML AMP ONE (14:15)
[2023-09-15] MEDS ORDERED: LIDOCAINE 1% INJ 10MG/ML (20 ML MDV) ONE (14:15)
[2023-09-15] MEDS ORDERED: PROPOFOL 10 MG/ML 20 ML VIAL IV ONE (14:15)
[2023-09-15] MEDS ORDERED: MIDAZOLAM 2 MG/2 ML VIAL ONE (14:15)
[2023-09-15] MEDS: CIPROFLOXACIN/DEXTROSE PMX 400 MG in DEXTROSE/WATER 1 200ML.BAG IVPB PRN (14:20)
--- NOTE | 2023-09-15 15:25 | P.OP ---
Date of Procedure: 09/15/23 Preoperative Diagnosis: Right ureteral stone Postoperative Diagnosis: Same Procedure(s) Performed: Cystoscopy, right ureteroscopy, holmium laser lithotripsy, stone basketing, stent insertion Implants: 6 Indian by 26 cm stent left on a string and taped to the patient right thigh in the right ureter Anesthesia: NAVIN Surgeon: Anthony Vazquez Estimated Blood Loss (ml): 5 Pathology: other (right renal stone) Condition: stable Disposition: PACU Indications for Procedure: Is a 78-year-old female with history of a 9 mm right-sided proximal stone. She is symptomatic from her stone. Of note she does have history of hepatomegaly, discussed with her given that finding ureteroscopy with holmium laser is the preferred route over ESWL, aware of the risk which includes but not limited to bleeding, infection, injury to the ureter Operative Findings: Right-sided renal pelvic stone Description of Procedure: Patient brought to the operating room, general anesthesia was induced. She was prepped and draped in sterile fashion placed in dorsolithotomy position. Cystoscopy through the 21 Indian sheath was inserted per urethra, cystoscopy was performed showed no abnormality within the bladder. The right ureter orifice was intubated with a sensor wire. On fluoroscopy a radiopaque density was seen in the region of the right kidney. At this time 1113 Indian access sheath was passed over the wire and into the proximal ureter. Next a flexible ureteroscope was inserted through the access sheath, renoscopy was performed showed a large stone in the renal pelvis. Using the holmium laser the stone was dusted, any sizable stone fragments were removed using the stone basket. Repeat renoscopy showed no sizable fragments or injury to the kidney, on fluoroscopy there is no radiopaque densities visualized. At this time pullback ureteroscopy was performed showed no injury to the ureter or any ureteral stones, as ureteroscope was withdrawn a sensor wire was advanced through. Next a ureteral stent was passed over the wire, the proximal curl was visualized on fluoroscopy and the distal curl was visualized using the cystoscope. The stent was left on a string and taped to the patient right thigh. Patient was awakened from anesthesia and taken to recovery in stable condition
[2023-09-15 15:35] VITALS: TEMP 97.8
[2023-09-15] MEDS: HYDROmorphone 0.5 MG/0.5 ML SYRINGE IVP PRN (15:49)
[2023-09-15] MEDS: KETOROLAC 15 MG/ML 1 ML VIAL IM STA (16:02)
[2023-09-15 16:24] VITALS: RESP 16
[2023-09-15 16:41] VITALS: BP 145/85; PULSE 70
--- NOTE | 2023-09-16 08:26 | FL ---
EXAMINATION TYPE: FL guidance operating room Intraoperative/procedural fluoroscopic services were pro vided. Total fluoroscopy time is 4.8 seconds with a total of 2 submitted images to PACS. Please see t he operative/procedural note for further details. DAP: [id number] [id number]
== END 2023-09-15 16:56 | disposition home or self-care (01) ==
LOC: OR 12:32
PROVIDERS: ATTEND Urology
DX: N20.1 Calculus of ureter (principal); E11.9 Type 2 diabetes mellitus without complications; Z87.891 Personal history of nicotine dependence; Z88.1 Allergy status to other antibiotic agents; Z90.49 Acquired absence of other specified parts of digestive tract; Z90.710 Acquired absence of both cervix and uterus
CPT/HCPCS: 52356; 82365; 74018; C2625; C1769; J2250; J1100; J2405; J2001; J3010; J0744; J1885; J2704; J1170

== ENCOUNTER 2023-09-16 01:37 | Emergency (ER) | payer BC, OTHER ==
[2023-09-16 01:41] VITALS: BP 161/94; PULSE 73; RESP 18; TEMP 98.5
[2023-09-16] MEDS: HYDROmorphone 1 MG/ML 1 ML SYRINGE IVP STA (02:33)
--- NOTE | 2023-09-16 02:52 | ED ---
Female Urogenital HPI - General Chief complaint: Urogenital Stated complaint: Post op-kidney stone back pain Time Seen by Provider: 09/16/23 01:46 Source: patient, RN notes reviewed, old records reviewed Mode of arrival: ambulatory Limitations: no limitations - History of Present Illness Initial comments: 38-year-old female presenting to the ED with a chief complaint of right flank/abdominal pain. Patient had cystoscopy, right ureteroscopy, holmium laser lithotripsy stone basketing, and stent insertion by Dr. Vazquez performed yesterday. Patient states today he is starting to have pain of her right flank and abdomen and believes that her stent is out of place. Also notes difficulties urinating. No fever or chills. No other complaints at this time. - Related Data Home Medications Medication Instructions Recorded Confirmed Venlafaxine HCl [Effexor XR] 225 mg PO QAM 10/29/22 09/15/23 Ergocalciferol [Vitamin D2 (1250 50,000 unit PO WEEKLY 11/06/22 09/15/23 Mcg = 22774 Iu)] Ketorolac [Toradol] 10 mg PO Q6HR PRN 09/11/23 09/15/23 Multivitamins, Thera [Multivitamin 1 tab PO DAILY 09/11/23 09/15/23 (formulary)] Tamsulosin [Flomax] 0.4 mg PO DAILY 09/11/23 09/15/23 Previous Rx's Medication Instructions Recorded Ketorolac [Toradol] 10 mg PO Q6HR PRN #10 tab 09/15/23 Allergies Allergy/AdvReac Type Severity Reaction Status Date / Time cephalexin [From Keflex] AdvReac Unknown Verified 09/16/23 01:41 ethinyl estradiol AdvReac Nausea & Verified 09/16/23 01:41 [From Sprintec (28)] Vomiting & Diarrhea norgestimate AdvReac Nausea & Verified 09/16/23 01:41 [From Sprintec (28)] Vomiting & Diarrhea Review of Systems ROS Statement: Those systems with pertinent positive or pertinent negative responses have been documented in the HPI. ROS Other: All systems not noted in ROS Statement are negative. Past Medical History Past Medical History: Diabetes Mellitus Additional Past Medical History / Comment(s): Hx and current kidney stones. Diet Controlled Diabetes. History of Any Multi-Drug Resistant Organisms: None Reported Past Surgical History: Adenoidectomy, Bariatric Surgery, Cholecystectomy, Hysterectomy, Orthopedic Surgery, Tonsillectomy, Tubal Ligation Additional Past Surgical History / Comment(s): Lithotripsy, sleeve gastrectomy 04-06-23, carpal tunnel release. Past Anesthesia/Blood Transfusion Reactions: Postoperative Nausea & Vomiting (PONV) Past Psychological History: Anxiety, Depression Smoking Status: Former smoker Past Alcohol Use History: None Reported Past Drug Use History: Marijuana - Past Family History Father Family Medical History: Cancer Additional Family Medical History / Comment(s): Lung cancer. General Exam Limitations: no limitations General appearance: alert, in no apparent distress Eye exam: Present: normal appearance Neck exam: Present: normal inspection Respiratory exam: Present: normal lung sounds bilaterally Cardiovascular Exam: Present: regular rate GI/Abdominal exam: Present: soft External exam: Present: other (Exam chaperoned by Ragini VARGAS. Ureteral stent is extending out of the urethra.) Neurological exam: Present: alert, oriented X3 Skin exam: Present: warm, dry Course Vital Signs 09/16/23 01:40 Temperature 98.5 F Pulse Rate 73 Respiratory 18 Rate Blood Pressure 161/94 O2 Sat by Pulse 98 Oximetry Procedures - Procedures Initial comment: Ureteral stent was removed by gently pulling on the string which it was attached to. Patient tolerated procedure well with no complications. Medical Decision Making - Medical Decision Making Was pt. sent in by a medical professional or institution (PADMINI Mccabe, BRANCH ASSISTANT, urgent care, hospital, or correction...) When possible be specific @ -No Did you speak to anyone other than the patient for history (EMS, parent, family, police, friend...)? What history was obtained from this source @ -No Did you review nursing and triage notes (agree or disagree)? Why? @ -I reviewed and agree with nursing and triage notes Were old charts reviewed (outside hosp., previous admission, EMS record, old EKG, old radiological studies, urgent care reports/EKG's, correction records)? Report findings @ -No old charts were reviewed Differential Diagnosis (chest pain, altered mental status, abdominal pain women, abdominal pain men, vaginal bleeding, weakness, fever, dyspnea, syncope, headache, dizziness, GI bleed, back pain, seizure, CVA, palpatations, mental health, musculoskeletal)? @ -Differential Abdominal Pain Women: Appendicitis, Cholecystitis, diverticulosis, ischemic bowel, pancreatitis, hepatitis, UTI, gastroenteritis, AAA, incarcerated hernia, bowel obstruction, constipation, inflammatory bowel, hepatitis, peptic ulcer disease, splenic infarction, perforated viscus, vulvitis, ovarian torsion, PID, kidney stone, placenta abruption, this is not meant to be an all-inclusive list EKG interpreted by me (3pts min.). @ -As above X-rays interpreted by me (1pt min.). @ -KUB interpreted me which shows the ureteral stent is out of place. CT interpreted by me (1pt min.). @ -None done U/S interpreted by me (1pt. min.). @ -None done What testing was considered but not performed or refused? (CT, X-rays, U/S, labs)? Why? @ -None What meds were considered but not given or refused? Why? @ -None Did you discuss the management of the patient with other professionals (giselle schwartz i.e. , PA, BRANCH ASSISTANT, lab, RT, psych nurse, protective services social worker, director social service, teacher, photographic intelligence officer, shoe caser)? Give summary @ -Case discussed with Dr. Vazquez, of urology, who advises gentle removal of the stent with close outpatient follow-up. Was smoking cessation discussed for >3mins.? @ -No Was critical care preformed (if so, how long)? @ -No Were there social determinants of health that impacted care today? How? (Homelessness, low income, unemployed, alcoholism, drug addiction, transportation, low edu. Level, literacy, decrease access to med. care, fpc, rehab)? @ -No Was there de-escalation of care discussed even if they declined (Discuss DNR or withdrawal of care, Hospice)? DNR status @ -No What co-morbidities impacted this encounter? (DM, HTN, Smoking, COPD, CAD, Cancer, CVA, ARF, Chemo, Hep., AIDS, mental health diagnosis, sleep apnea, morbid obesity)? @ -None Was patient admitted / discharged? Hospital course, mention meds given and route, prescriptions, significant lab abnormalities, going to OR and other pertinent info. @ -Discharge 38-year-old female presents to the ED with complaints of abdominal/flank pain concerned that her ureteral stent is out of place. On examination her ureteral stent is clearly extending out of her urethra with KUB demonstrating malposition of her ureteral stent. This was removed patient following had significant improvement of pain. Patient discharged home in stable condition with instructions to closely follow-up with her urologist as scheduled. Discussed return precautions with patient who verbalized agreement. Undiagnosed new problem with uncertain prognosis? @ -No Drug Therapy requiring intensive monitoring for toxicity (Heparin, Nitro, Insulin, Cardizem)? @ -No Were any procedures done? @ -Yes, ureteral stent removal. Diagnosis/symptom? @ -Ureteral stent displacement Acute, or Chronic, or Acute on Chronic? @ -Acute Uncomplicated (without systemic symptoms) or Complicated (systemic symptoms)? @ -Uncomplicated Side effects of treatment? @ -No Exacerbation, Progression, or Severe Exacerbation? @ -No Poses a threat to life or bodily function? How? (Chest pain, [place], [place], pneumonia, PE, COPD, DKA, ARF, appy, cholecystitis, CVA, Diverticulitis, Homicidal, Suicidal, threat to staff... and all critical care pts) @ -No Disposition Clinical Impression: Ureteral stent displacement Disposition: HOME SELF-CARE Condition: Good Additional Instructions: Please return to the Emergency Department if symptoms worsen or any other concerns. Please follow-up with urology. Is patient prescribed a controlled substance at d/c from ED?: No Referrals: Félix Velázquez MD [Primary Care Provider] - 1-2 days Time of Disposition: 02:52
--- NOTE | 2023-09-16 04:03 | XR ---
EXAM: XR Abdomen, 1 View CLINICAL HISTORY: ITS.REASON XR Reason: hx r ureteral stent. TECHNIQUE: Frontal supine view of the abdomen/pelvis. COMPARISON: No relevant prior studies available. FINDINGS: Gastrointestinal tract: Gastric sleeve suture margin. No dilation. Organs: Cholecystectomy clips. Bones/joints: Unremarkable. No acute fracture. IMPRESSION: No acute findings.
== END 2023-09-16 03:01 | disposition home or self-care (01) ==
LOC: EC 01:37
DX: T83.122A Displacement of indwelling ureteral stent, initial encounter (principal); Z88.1 Allergy status to other antibiotic agents; Z88.8 Allergy status to other drugs, medicaments and biological substances; Z87.891 Personal history of nicotine dependence
CPT/HCPCS: 74018; 99283; 96374; J1170

== ENCOUNTER → 2024-02-17 | Outpatient (CLI) | payer BC, OTHER ==
[2024-02-17 14:11] VITALS: BP 118/72; PULSE 80; RESP 16; TEMP 98; BMI 26.4
--- NOTE | 2024-02-17 15:06 | P.BASOAP ---
Subjective Progress Note Date: 02/17/24 She lost over 100 pounds. She feels great. She has sleeve. No more reflux. And not taking medications. She has clothes and given to [facility]. Her goal is 200 pounds. She is not taking MVI. She has not stigmata of obesity. Her PCP did her blood work. She reports fatigue. Has hair loss. Her protein intake is low. No MVI. Needs ENT. She has a right thyroid nodule. She needs new drivers license. Objective - Vital Signs Vital signs: Vital Signs Temp 98.0 F 02/17/24 14:04 Pulse 80 02/17/24 14:04 Resp 16 02/17/24 14:04 BP 118/72 02/17/24 14:04 Pulse Ox FiO2 Intake & Output 02/16/24 02/17/24 02/17/24 18:59 06:59 18:59 Weight 89.811 kg Assessment/Plan Plan: Date: 02/17/24 Initial Weight: 123.377 kg Initial BMI: 36.3 Current Weight: 89.811 kg Current BMI: 26.4 Type of Surgery: Total Volume in Band: Previous Volume: Volume Removed: Volume Added: Band Size:
== END ==
LOC: BARWHC3 13:57
PROVIDERS: ATTEND Surgery Plastic and Reconstructive Surgery
DX: E66.01 Morbid (severe) obesity due to excess calories (principal); F12.90 Cannabis use, unspecified, uncomplicated; Z88.8 Allergy status to other drugs, medicaments and biological substances; Z88.1 Allergy status to other antibiotic agents; Z68.26 Body mass index [BMI] 26.0-26.9, adult
CPT/HCPCS: 99211

== ENCOUNTER → 2024-05-03 | Outpatient (CLI) | payer OTHER ==
[2024-05-03 14:10] LABS: INR 0.9 (<1.2); Partial Thromboplastin Time 24.4 sec (22.0-30.0); Prothrombin Time 10.1 sec (10.0-12.5)
[2024-05-03 19:11] LABS: HCT 39.6 % (37.2-46.3); HGB 12.8 g/dL (12.0-15.0); MCH 31.7 pg (27.0-32.0); MCHC 32.3 g/dL (32.0-37.0); Mean Platelet Volume 10.7 FL (9.5-12.2); NRBC Per 100 WBC 0 X 10*3/uL (0.00-0.01); Platelet Count 261 X 10*3/uL (140-440); RBC 4.04 X 10*6/uL (4.10-5.20); RDW 12.3 % (11.5-14.5); WBC 5.91 X 10*3/uL (4.50-10.00)
[2024-05-03 19:29] LABS: % Iron Saturation 32.94 (12.00-45.00); Chol/HDL Ratio 3.06 Ratio; Iron 112 UG/DL (50-170); Magnesium 2.1 mg/dL (1.5-2.4); Phosphorus 3.6 mg/dL (2.4-5.1); Total Iron Binding Capacity 340 UG/DL (228-460)
[2024-05-03 19:33] LABS: ALT 11 U/L (8-44); AST 18 U/L (13-35); Albumin 4.3 g/dL (3.8-4.9); Albumin/Globulin Ratio 2.05 Ratio (1.60-3.17); Alkaline Phosphatase 73 U/L (41-126); BUN/Creat Ratio 17.71 Ratio (12.00-20.00); Blood Urea Nitrogen 12.4 mg/dL (9.0-27.0); Calcium 9.1 mg/dL (8.7-10.3); Carbon Dioxide 26.6 mmol/L (21.6-31.8); Chloride 108 mmol/L (96-109); Globulin 2.1 g/dL (1.6-3.3); Glucose 49 mg/dL (70-110); Potassium 3.7 mmol/L (3.5-5.5); Sodium 144 mmol/L (135-145); Total Bilirubin 0.4 mg/dL (0.3-1.2); Total Protein 6.4 g/dL (6.2-8.2)
[2024-05-04 13:26] LABS: Zinc, Serum 66 ug/dL (60-130)
[2024-05-05 06:21] LABS: Vitamin A 64 ug/dL (38-106)
== END | disposition home or self-care (01) ==
LOC: LABWHC1 12:56
PROVIDERS: ATTEND Surgery Plastic and Reconstructive Surgery
DX: E89.1 Postprocedural hypoinsulinemia (principal); D50.8 Other iron deficiency anemias; K91.2 Postsurgical malabsorption, not elsewhere classified; E44.0 Moderate protein-calorie malnutrition; E45 Retarded development following protein-calorie malnutrition; E55.9 Vitamin D deficiency, unspecified; K74.1 Hepatic sclerosis; N19 Unspecified kidney failure; T56.894A Toxic effect of other metals, undetermined, initial encounter; K50.90 Crohn's disease, unspecified, without complications
CPT/HCPCS: 36415; 80053; 80061; 82306; 82525; 82607; 82728; 82746; 83036; 83540; 83550; 83735; 83970; 84100; 84255; 84425; 84443; 84590; 84630; 85027; 85610; 85730